=== PATIENT | female | born 1995 | race Caucasian/White ===

== ENCOUNTER → 2016-05-15 | Outpatient (CLI) | payer OTHER ==
[~2016-05-15] MED LIST: ACET-1311 PO; BCPILLS PO; MPR50 PO; MTR600X PO; NITR-5 PO; ONDA8TAB62 SL; OXYC-57 PO; PERCOCET PO; PRENTAB26 PO; SERT50TA PO
[2016-05-15 18:31] LABS: URINE APPEARANCE CLEAR (CLEAR); URINE BILIRUBIN NEG (NEG); URINE COLOR YELLOW; URINE EPITHELIAL CELL AUTO >30 /lpf (0-5); URINE NITRITE NEG (NEG); URINE SPECIFIC GRAVITY 1.032 (1.000-1.030); UROBILINOGEN NEG (NEG)
[2016-05-15 18:32] LABS: MANUAL MICROSCOPIC REQUIRED? NO; REVIEW REQ? NO
== END | disposition home or self-care (01) ==
LOC: C.LABSPEC 17:05
PROVIDERS: ATTEND Obstetrics & Gynecology
DX: O34.219 Maternal care for unspecified type scar from previous cesarean delivery (principal); Z3A.00 Weeks of gestation of pregnancy not specified

== ENCOUNTER → 2016-05-17 | Outpatient (CLI) | payer OTHER ==
[2016-05-20 02:38] LABS: CHLAMYDIA TRACH RNA*** NOT DETECTED (NOT DETECTED); GC (NEIS GONORRHOEAE)RNA** NOT DETECTED (NOT DETECTED)
== END | disposition home or self-care (01) ==
LOC: C.LABSPEC 16:01
PROVIDERS: ATTEND Obstetrics & Gynecology
DX: O34.219 Maternal care for unspecified type scar from previous cesarean delivery (principal)

== ENCOUNTER → 2016-05-17 | Outpatient (CLI) | payer OTHER ==
[2016-05-17 16:40] LABS: BASO % 0.3 %; BASO ABS # 0.03 K/uL (0-0.2); COMPLETE YES; EOS % 0.7 %; HEMATOCRIT 41.4 % (37-47); IG% 0.4 %; LYMPH % 26.9 %; LYMPH ABS # 3.17 K/uL (1.2-3.4); MEAN CELL VOLUME 88.5 fL (80-100); MEAN CORPUSCULAR HEMOGLOBIN 31.2 pg (25-34); MEAN CORPUSCULAR HGB CONC 35.3 g/dl (32-36); MEAN PLATELET VOLUME 10.3 fL (7.4-10.4); NEUT % 64.7 %; PLATELET COUNT 311 K/uL (130-400); RED BLOOD COUNT 4.68 M/uL (4.2-5.4); WHITE BLOOD COUNT 11.77 K/uL (4.8-10.8)
== END | disposition home or self-care (01) ==
LOC: C.LAB1850 14:50
PROVIDERS: ATTEND Obstetrics & Gynecology
DX: O34.219 Maternal care for unspecified type scar from previous cesarean delivery (principal)

== ENCOUNTER 2016-05-18 19:49 | Emergency (ER) | payer OTHER ==
[~2016-05-18] VITALS: Ht 157.5 cm; Wt 50.0 kg
[~2016-05-18 19:49] MED LIST changes: -ACET-1311 PO; -MPR50 PO; -MTR600X PO; -NITR-5 PO; -ONDA8TAB62 SL; -OXYC-57 PO; -PRENTAB26 PO
[2016-05-18 20:06] VITALS: TEMP 37.2; Ht 157.5 cm; Wt 50.0 kg
[2016-05-18] MEDS ORDERED: SODIUM CHLORIDE 0.9% 1000ML 1,000 ML IV STA (21:56)
[2016-05-18] MEDS ORDERED: ACETAMINOPHEN 500 MG TAB PO STA (22:02)
[2016-05-18 22:16] VITALS: O2SAT 100
[2016-05-18] MEDS ORDERED: ACET-1311 PO (22:42)
[2016-05-18] MEDS ORDERED: PRENTAB26 PO (22:42)
[2016-05-18 23:16] LABS: BUN/CREATININE RATIO 13.1 (10-20); CALCIUM 8.8 mg/dl (8.5-10.1); CREATININE 0.62 mg/dl (0.60-1.20); POTASSIUM 3.7 mmol/L (3.5-5.1)
[2016-05-18 23:19] LABS: ALB/GLOB RATIO 1.2 (0.9-2)
[2016-05-18 23:50] LABS: BASO % 0.2 %; BASO ABS # 0.03 K/uL (0-0.2); COMPLETE YES; EOS % 1.1 %; HEMATOCRIT 36.8 % (37-47); IG% 0.3 %; LYMPH ABS # 4.13 K/uL (1.2-3.4); MEAN CELL VOLUME 88.9 fL (80-100); MEAN CORPUSCULAR HEMOGLOBIN 31.2 pg (25-34); MEAN CORPUSCULAR HGB CONC 35.1 g/dl (32-36); MEAN PLATELET VOLUME 9.7 fL (7.4-10.4); MONO % 6.2 %; NEUT % 61.2 %; PLATELET COUNT 254 K/uL (130-400); RED BLOOD COUNT 4.14 M/uL (4.2-5.4); WHITE BLOOD COUNT 13.31 K/uL (4.8-10.8)
[2016-05-19 00:33] LABS: URINE APPEARANCE CLOUDY (CLEAR); URINE BILIRUBIN NEG (NEG); URINE COLOR YELLOW; URINE EPITHELIAL CELL AUTO >30 /lpf (0-5); URINE NITRITE NEG (NEG); URINE SPECIFIC GRAVITY 1.017 (1.000-1.030); UROBILINOGEN NEG (NEG); ZZUR CULT IF INDIC CLEAN CATCH YES
[2016-05-19 00:34] LABS: MANUAL MICROSCOPIC REQUIRED? NO; REVIEW REQ? NO
[2016-05-19 01:55] VITALS: BP 101/45; PULSE 75; O2SAT 99
--- NOTE | 2016-05-19 06:17 | EMERGENCY ROOM VISIT NOTE ---
History First contact with patient: 21:51 Chief Complaint: FLANK PAIN Stated Complaint: BACK/RIB PAIN R SIDE DIZZINESS BLACKING OUT History of Present Illness The patient is a 21 year old female who presents to the Emergency Room with complaints of right flank pain for the past 8 months described as aching, ranging in severity currently 5 out of 10 throughout a near-syncopal episode today feels lightheaded. Patient is 7 weeks . She saw ani Bashir OB yesterday and had her testing done. She has a viable IUP by ultrasound per patient. Patient denies chest pain, dyspnea, fever, chills, cough, congestion, nausea, vomiting, diarrhea, urinary symptoms, headache injury , recent illness. She is tolerate by mouth fluids and food. This is her second . She is one living child. Review of Systems See HPI for pertinent positives & negatives. A total of 10 systems reviewed and were otherwise negative. Past Medical/Surgical History Medical Problems: (1) Hx MRSA infection (2) Ovarian cyst, left Surgical Problems: (1) S/P appendectomy (2) S/P cholecystectomy Social History Smoking Status: Current Some Day Smoker Alcohol Use: none Drug Use: none Current/Historical Medications Scheduled Acetaminophen (Tylenol), 650 MG PO DIRECTED Multivit/Min/Iron/Fol Ac/Pren ( Vitamin), 1 TAB PO DAILY Allergies Coded Allergies: Ketorolac Tromethamine (Verified Allergy, Unknown, unknown, 05/18/16) Morphine (Verified Allergy, Unknown, unknown, 05/18/16) Penicillins (Verified Allergy, Unknown, unknwn, 05/18/16) Promethazine (Verified Allergy, Unknown, unknown, 05/18/16) Physical Exam Vital Signs Date Time Temp Pulse Resp B/P Pulse Ox O2 Delivery O2 Flow Rate FiO2 05/19/16 01:55 75 20 101/45 99 05/19/16 01:50 73 05/19/16 00:31 72 20 101/45 98 Room Air 05/18/16 22:22 70 108/57 69 102/59 84 100/67 05/18/16 22:16 100 Room Air 05/18/16 22:16 100 Room Air 05/18/16 22:00 79 05/18/16 21:51 61 18 119/71 100 Room Air 05/18/16 20:06 37.2 106 16 110/69 100 Room Air Pain Rating (0-10): 0 Physical Exam VITALS: Vitals are noted on the nurse's note and reviewed by myself. Vital signs stable. GENERAL: Pleasant female, in no acute distress, nondiaphoretic, well-developed well-nourished. SKIN: The skin was without rashes, erythema, edema, or bruising. There is no tenting of the skin. Capillary reflex less than 2 seconds. HEAD: Normocephalic atraumatic. EARS: External auditory canals clear, tympanic membranes pearly heredia without erythema or effusion bilaterally. EYES: Pupils equal round and reactive to light and accommodation. Conjunctivae without injection, sclerae without icterus. Extraocular movements intact. NOSE: Patent, turbinates without inflammation or discharge. MOUTH: Mucous membranes moist. Pharynx without erythema or exudate. Uvula midline. Airway patent. Tongue does not deviate. NECK: Supple without nuchal rigidity. No lymphadenopathy. No thyromegaly. Cervical spine is nontender. No JVD. HEART: Regular rate and rhythm without murmurs gallops or rubs. LUNGS: Clear to auscultation bilaterally without wheezes, rales or rhonchi. No dullness to percussion. No retractions or accessory muscle use. ABDOMEN: Positive bowel sounds x 4. Normal tympanic percussion. Soft, nontender, without masses or organomegaly. King sign negative. No guarding or rebound tenderness. No CVA tenderness MUSCULOSKELETAL: No muscle atrophy, erythema, or edema noted. No thoracic or lumbar tenderness on exam. NEURO: Patient was alert and oriented to person place and time. Normal sensation to light and sharp touch. No focal neurological deficits. Medical Decision & Procedures Laboratory Results 05/18/16 23:40 Red Blood Count 4.14, Mean Corpuscular Volume 88.9, Mean Corpuscular Hemoglobin 31.2, Mean Corpuscular Hemoglobin Concent 35.1, Mean Platelet Volume 9.7, Neutrophils (%) (Auto) 61.2, Lymphocytes (%) (Auto) 31.0, Monocytes (%) (Auto) 6.2, Eosinophils (%) (Auto) 1.1, Basophils (%) (Auto) 0.2, Neutrophils # (Auto) 8.14, Lymphocytes # (Auto) 4.13, Monocytes # (Auto) 0.83, Eosinophils # (Auto) 0.14, Basophils # (Auto) 0.03 05/18/16 22:45 Test 05/18/16 00:00 05/18/16 22:45 05/18/16 23:40 Urine Color YELLOW Urine Appearance CLOUDY (CLEAR) Urine pH 7.0 (4.5-7.5) Urine Specific [place] 1.017 (1.000-1.030) Urine Protein NEG (NEG) Urine Glucose (UA) NEG (NEG) Urine Ketones NEG (NEG) Urine Occult Blood 1+ (NEG) Urine Nitrite NEG (NEG) Urine Bilirubin NEG (NEG) Urine Urobilinogen NEG (NEG) Urine Leukocyte Esterase SMALL (NEG) Urine WBC (Auto) 5-10 /hpf (0-5) Urine RBC (Auto) 10-30 /hpf (0-4) Urine Hyaline Casts (Auto) 1-5 /lpf (0-5) Urine Epithelial Cells (Auto) >30 /lpf (0-5) Urine Bacteria (Auto) 1+ (NEG) Anion Gap 9.0 mmol/L (3-11) Est Creatinine Clear Calc Drug Dose 112.3 ml/min Estimated GFR () 148.3 Estimated GFR (Non- 128.0 BUN/Creatinine Ratio 13.1 (10-20) Calcium Level 8.8 mg/dl (8.5-10.1) Total Bilirubin 0.3 mg/dl (0.2-1) Direct Bilirubin 0.1 mg/dl (0-0.2) Aspartate Amino Transf (AST/SGOT) 14 U/L (15-37) Alanine Aminotransferase (ALT/SGPT) 18 U/L (12-78) Alkaline Phosphatase 70 U/L (45-117) Total Protein 7.0 gm/dl (6.4-8.2) Albumin 3.8 gm/dl (3.4-5.0) Globulin 3.2 gm/dl (2.5-4.0) Albumin/Globulin Ratio 1.2 (0.9-2) Lipase 166 U/L (73-393) Human Chorionic Gonadotropin, Quant 96922 mIU/mL White Blood Count 13.31 K/uL (4.8-10.8) Red Blood Count 4.14 M/uL (4.2-5.4) Hemoglobin 12.9 g/dL (12.0-16.0) Hematocrit 36.8 % (37-47) Mean Corpuscular Volume 88.9 fL (80-100) Mean Corpuscular Hemoglobin 31.2 pg (25-34) Mean Corpuscular Hemoglobin Concent 35.1 g/dl (32-36) Platelet Count 254 K/uL (130-400) Mean Platelet Volume 9.7 fL (7.4-10.4) Neutrophils (%) (Auto) 61.2 % Lymphocytes (%) (Auto) 31.0 % Monocytes (%) (Auto) 6.2 % Eosinophils (%) (Auto) 1.1 % Basophils (%) (Auto) 0.2 % Neutrophils # (Auto) 8.14 K/uL (1.4-6.5) Lymphocytes # (Auto) 4.13 K/uL (1.2-3.4) Monocytes # (Auto) 0.83 K/uL (0.11-0.59) Eosinophils # (Auto) 0.14 K/uL (0-0.5) Basophils # (Auto) 0.03 K/uL (0-0.2) RDW Standard Deviation 40.8 fL (36.4-46.3) RDW Coefficient of Variation 12.8 % (11.5-14.5) Immature Granulocyte % (Auto) 0.3 % Immature Granulocyte # (Auto) 0.04 K/uL (0.00-0.02) Medications Administered Medications (Trade) Dose Ordered Sig/Sandrita Route Start Time Stop Time Status Last Admin Dose Admin Sodium Chloride (Nss 1000ml) 1,000 ml @ 999 mls/hr Q1H1M STAT IV 05/18/16 21:56 05/18/16 22:56 DC 05/18/16 21:56 999 MLS/HR Acetaminophen (Tylenol Tab) 1,000 mg NOW STAT PO 05/18/16 22:02 05/18/16 22:03 DC 05/18/16 22:36 1,000 MG ED Course Prior records/ancillary studies reviewed. Triage Nursing notes reviewed. The patient's history was concerning for flank pain with near syncope. Differential diagnosis: Etiologies such as vasovagal event, infection, hypoglycemia, electrolyte abnormalities, cardiac sources, intracerebral event, toxicologic, neurologic, as well as others were entertained. Physical examination: Patient alert, interactive and well-appearing. She is eating fast food ER treatment provided: IV hydration with normal saline On reassessment the patient felt better. Diagnostics interpretation by me: ECG: Normal sinus, normal intervals, no acute ST-T wave changes. Impression sinus bradycardia interpreted by myself The labs revealed leukocytosis most likely from . No worrisome electrolyte abnormality. Negative urine Imaging studies: Ultrasound was negative for hydronephrosis per stat radiology This appears to be consistent with near syncope. Patient has chronic back pain unchanged. Patient was neurovascularly and neurologically intact. She is well- appearing. She was advised to rest, stay well-hydrated, and follow-up with OB in a few days or here in the ER sooner for chest pain, difficulty breathing, syncope, worsening signs or symptoms or as needed. By the evaluation outlined above emergent etiologies such as infection, hypoglycemia, electrolyte abnormalities, cardiac sources, intracerebral event, toxicologic, neurologic,as well as others were deemed relatively unlikely. The pt informed about the findings as listed above. All questions were answered and pleased with the treatment. Return instructions were outlined and the patient was discharged in stable condition. Referral: The patient was referred back to their PATIENT [facility] for follow-up in 2 to 3 days for a recheck of the current condition. Case reviewed with my attending Medical Decision As above Impression Primary Impression: Near syncope Additional Impression: Right flank pain Departure Information Dispostion Home / Self-Care Condition GOOD Forms HOME CARE DOCUMENTATION FORM, Work Instructions, Return To Work: 1 day IMPORTANT VISIT INFORMATION Patient Instructions Syncope Causes, My [facility] Additional Instructions Acetaminophen(Tylenol) may be used for fever or pain. Use 1000mg every six hours as needed. Avoid using more than 3000mg in a 24 hour period. Rest and drink plenty of fluids as tolerated. Continue current medications. Avoid strenuous activities and anything that worsens your pain. Resume normal activities once your symptoms resolve. Return to the ER immediately for worsening or persistent back pain, abdominal pain, vomiting, fevers, chest pains, difficulty breathing, worsening of your condition, or as needed. Follow up with your primary physician and [facility] in 2-3 days for a recheck of your current condition. Work Instructions Return To Work: 1 day Problem Qualifiers
--- NOTE | 2016-05-19 06:38 | DIAGNOSTIC IMAGING REPORT ---
RENAL ULTRASOUND HISTORY: Flank pain right flank pain COMPARISON: None. FINDINGS: Right kidney: Maximum dimension 10.5 cm. Normal corticomedullary differentiation and cortical thickness. Left kidney: Maximum dimension 10.4 cm. Normal corticomedullary differentiation and cortical thickness. Bladder: No bladder wall thickening. The bilateral ureteral jets were identified. IMPRESSION: Normal renal ultrasound. Electronically signed by: Peyman Jackson M.D. 05/19/2016 6:36 AM Dictated Date/Time: 05/19/2016 6:36 AM
== END 2016-05-19 01:57 | disposition home or self-care (01) ==
LOC: C.EDB 19:49
DX: R55 Syncope and collapse (principal); R10.9 Unspecified abdominal pain; Z90.89 Acquired absence of other organs; Z90.49 Acquired absence of other specified parts of digestive tract; F17.200 Nicotine dependence, unspecified, uncomplicated; Z88.0 Allergy status to penicillin; Z88.5 Allergy status to narcotic agent

== ENCOUNTER → 2016-07-18 | Outpatient (CLI) | payer OTHER ==
[~2016-07-18] MED LIST changes: +ACET-1311 PO; -BCPILLS PO; +MPR50 PO; +MTR600X PO; +NITR-5 PO; +ONDA8TAB62 SL; +OXYC-57 PO; -PERCOCET PO; +PRENTAB26 PO; -SERT50TA PO; +VANC1INJ94 IV
[2016-07-18 15:58] LABS: GTGD 50 Grams
== END | disposition home or self-care (01) ==
LOC: C.LAB1850 14:06
PROVIDERS: ATTEND Obstetrics & Gynecology
DX: Z34.91 Encounter for supervision of normal pregnancy, unspecified, first trimester (principal)

== ENCOUNTER 2016-10-05 16:35 | Outpatient (CLI) | payer OTHER ==
[~2016-10-05 16:35] MED LIST changes: -MPR50 PO; -MTR600X PO; -NITR-5 PO; -ONDA8TAB62 SL; -OXYC-57 PO; -VANC1INJ94 IV
[2016-10-05] MEDS ORDERED: TERBUTALINE SULFATE 1 MG/ML VIAL ONE (20:13)
[2016-10-05] MEDS ORDERED: TERBUTALINE SULFATE 1 MG/ML VIAL SQ ONE ×2 (20:15)
[2016-12-21] MEDS ORDERED: OXYC-57 PO (05:14)
[2016-12-21] MEDS ORDERED: MTR600X PO (05:14)
[2016-12-21] MEDS ORDERED: MPR50 PO (08:13)
[2016-12-28] MEDS ORDERED: OXYC-57 PO (12:08)
[2016-12-28] MEDS ORDERED: VANC1INJ94 IV ×2 (12:34→14:56)
== END 2016-10-05 21:11 | disposition home or self-care (01) ==
LOC: C.OPB 16:35 → C.LD 16:35 → C.OPB 21:11
PROVIDERS: ATTEND Obstetrics & Gynecology
DX: O44.22 Partial placenta previa NOS or without hemorrhage, second trimester (principal); O99.89 Other specified diseases and conditions complicating pregnancy, childbirth and the puerperium; M54.9 Dorsalgia, unspecified; R10.9 Unspecified abdominal pain; Z3A.26 26 weeks gestation of pregnancy

== ENCOUNTER → 2016-10-16 | Outpatient (CLI) | payer OTHER ==
[~2016-10-16] MED LIST changes: +MPR50 PO; +MTR600X PO; +NITR-5 PO; +ONDA8TAB62 SL; +OXYC-57 PO; +VANC1INJ94 IV
[2016-10-16 16:36] LABS: HEMATOCRIT 36.7 % (37-47)
[2016-10-16 17:10] LABS: GTGD 50 Grams
== END | disposition home or self-care (01) ==
LOC: C.LAB1850 14:47
PROVIDERS: ATTEND Obstetrics & Gynecology
DX: Z34.02 Encounter for supervision of normal first pregnancy, second trimester (principal); Z20.5 Contact with and (suspected) exposure to viral hepatitis

== ENCOUNTER → 2016-10-16 | Outpatient (CLI) | payer OTHER ==
[2016-10-16 16:07] LABS: URINE APPEARANCE CLEAR (CLEAR); URINE BILIRUBIN NEG (NEG); URINE COLOR YELLOW; URINE EPITHELIAL CELL AUTO >30 /lpf (0-5); URINE NITRITE NEG (NEG); URINE PH 8.5 (4.5-7.5); URINE SPECIFIC GRAVITY 1.013 (1.000-1.030); UROBILINOGEN NEG (NEG)
[2016-10-16 16:11] LABS: MANUAL MICROSCOPIC REQUIRED? NO; REVIEW REQ? NO
== END | disposition home or self-care (01) ==
LOC: C.LABSPEC 15:46
PROVIDERS: ATTEND Obstetrics & Gynecology
DX: Z34.02 Encounter for supervision of normal first pregnancy, second trimester (principal)

== ENCOUNTER → 2016-11-01 | Outpatient (CLI) | payer OTHER | END | disposition home or self-care (01) | LOC: C.LAB1850 10:54 | PROVIDERS: ATTEND Obstetrics & Gynecology | DX: O28.9 Unspecified abnormal findings on antenatal screening of mother (principal); Z3A.00 Weeks of gestation of pregnancy not specified ==

== ENCOUNTER 2016-11-19 11:43 | Emergency (ER) | payer OTHER ==
[~2016-11-19] VITALS: Ht 154.9 cm; Wt 61.1 kg
[~2016-11-19 11:43] MED LIST changes: -MPR50 PO; -MTR600X PO; -NITR-5 PO; -ONDA8TAB62 SL; -OXYC-57 PO; -VANC1INJ94 IV
[2016-11-19 11:45] VITALS: TEMP 36.7; Ht 154.9 cm; Wt 61.1 kg
[2016-11-19] MEDS ORDERED: NITR-5 PO (12:12)
[2016-11-19] MEDS ORDERED: OXYC-57 PO (12:12)
[2016-11-19] MEDS ORDERED: ONDA8TAB62 SL (12:13)
[2016-11-19] MEDS ORDERED: SODIUM CHLORIDE 0.9% 1000ML 1,000 ML IV STA (12:18)
[2016-11-19] MEDS ORDERED: ONDANSETRON INJ 2 MG/ML 2 ML VIAL IV STA (12:18)
[2016-11-19] MEDS ORDERED: ACETAMINOPHEN IV 650 MG in EMPTY BAG 0 ML IV STA (12:18)
[2016-11-19] MEDS ORDERED: FENTANYL CITRATE INJ 50 MCG/1 ML 2 ML VIAL IV ONE (12:30)
[2016-11-19 12:42] LABS: BASO % 0.1 %; BASO ABS # 0.01 K/uL (0-0.2); COMPLETE YES; EOS % 0.6 %; HEMATOCRIT 35.8 % (37-47); LYMPH % 15.1 %; LYMPH ABS # 1.54 K/uL (1.2-3.4); MEAN CELL VOLUME 89.9 fL (80-100); MEAN CORPUSCULAR HEMOGLOBIN 30.7 pg (25-34); MEAN CORPUSCULAR HGB CONC 34.1 g/dl (32-36); MEAN PLATELET VOLUME 9.8 fL (7.4-10.4); MONO % 5.5 %; NEUT % 77.7 %; PLATELET COUNT 202 K/uL (130-400); RED BLOOD COUNT 3.98 M/uL (4.2-5.4)
--- NOTE | 2016-11-19 12:44 | EMERGENCY ROOM VISIT NOTE ---
History Report prepared by Lexy: Mandeep Tavares Under the Supervision of: Dr. Cassia Shankar M.D. First contact with patient: 12:02 Chief Complaint: FLANK PAIN Stated Complaint: LEFT FLANK PAIN History of Present Illness The patient is a 21 year old female who presents to the Emergency Room with complaints of worsening left flank pain beginning 2 days ago. The patient states that she has been experiencing pain in the right flank for the past year. She notes that she has seen her PCP, urologist, and ED doctors multiple times. She reports that her pain spread to the left side, and is getting worse. The patient notes that she has been in the ER for the past two days for similar symptoms. She states that she had a renal ultra sound that showed mild right renal hydronephrosis. 0.5 x 0.4 x 0.5 cm possible calcification of the lower pole of the right kidney. Slightly pelvocaliectasis of the left kidney. Left ureteral jet no demonstrated. Clinical correlation and follow up exams are recommended. The patient states that she was given Percocet for pain, because all she had was Tylenol. She notes that she cannot move without pain. She reports that she is 33 weeks , and she can feel the baby move. She denies fevers. Source of History: patient Onset: two days ago Position: other (left flank) Timing: worsening Modifying Factors (Worsening): movement Associated Symptoms: No fevers Review of Systems See HPI for pertinent positives & negatives. A total of 10 systems reviewed and were otherwise negative. Past Medical & Surgical Medical Problems: (1) 26 weeks gestation of (2) Back pain complicating in second trimester (3) Cramping affecting , antepartum (4) Hx MRSA infection (5) Ovarian cyst, left (6) Placenta previa marginalis (7) Vaginal bleeding during , antepartum Surgical Problems: (1) S/P appendectomy (2) S/P cholecystectomy Family History Cancer Diabetes mellitus Gallbladder disease Heart disease Hypertension Kidney disease Kidney stones Seizures Social History Smoking Status: Current Some Day Smoker Alcohol Use: none Drug Use: none Marital Status: in relationship Housing Status: lives with significant other Occupation Status: unemployed Current/Historical Medications Scheduled Acetaminophen (Tylenol), 650 MG PO DIRECTED Multivit/Min/Iron/Fol Ac/Pren ( Vitamin), 1 TAB PO QAM Nitrofurantoin Monohyd Macrocr (Macrobid), 100 MG PO Q12 Scheduled PRN Ondansetron Odt (Zofran Odt), 8 MG SL Q6H PRN for Nausea Oxycodone/Acetaminophen 5MG/325MG (Percocet 5MG/325MG), 1 TABLET PO Q6H PRN for Pain Allergies Coded Allergies: Ketorolac Tromethamine (Verified Allergy, Unknown, unknown, 11/19/16) Morphine (Verified Allergy, Unknown, unknown, 11/19/16) Penicillins (Verified Allergy, Unknown, unknwn, 11/19/16) Promethazine (Verified Allergy, Unknown, unknown, 11/19/16) Physical Exam Vital Signs Date Time Temp Pulse Resp B/P (MAP) Pulse Ox O2 Delivery O2 Flow Rate FiO2 11/19/16 14:21 66 18 95/43 99 11/19/16 13:39 79 16 96/46 100 Room Air 11/19/16 11:45 36.7 82 18 107/64 98 Room Air Physical Exam Vital signs reviewed. General: Tearful and anxious 21 year old female, in moderate distress. HEENT: No scleral icterus, PERRLA, neck supple. Atraumatic. Cardiovascular: Regular rate and rhythm, no extra sounds. Pulmonary: Clear to auscultation bilaterally, normal work of breathing. Abdomen: Soft, nontender, gravid, positive bowel sounds. Musculoskeletal: Atraumatic, no peripheral edema. Left greater than right CVA tenderness. Neurologic: Patient awake alert and oriented x 3, full strength in all 4 extremities. Cranial nerves 2 through 12 grossly intact. Skin: Warm, dry, no rash Medical Decision & Procedures ER Provider Diagnostic Interpretation: Radiology results as stated below per my review and radiologist interpretation: (RENAL)RETROPERITON COMP HISTORY: 21 years-old Female acute left flank pain with COMPARISON: Renal ultrasound 05/18/2016 TECHNIQUE: Multiple real-time sonographic images of the kidneys and urinary bladder were obtained assessing grayscale appearance and color flow. FINDINGS: The right kidney measures 12.5 x 4.1 x 5.0 cm. There are multiple echogenic shadowing stones identified with associated twinkle artifact, measuring in the 2 to 3 mm range, notably within the inferior pole without significant hydronephrosis. There is however mild dilation of the collecting system, likely physiologic Cortical medullary differentiation is within normal limits. Left kidney measures 12.3 x 5.5 x 5.2 cm. There is mild dilation of the renal pelvis, Central and peripheral calyces. Several stones are seen within the left kidney, largest of which is within the inferior pole, 0.4 cm. Fetus is noted within the pelvis causing mass effect upon the urinary bladder. Bilateral ureteral jets are not documented. IMPRESSION: 1. Bilateral nephrolithiasis with mild dilation of the left renal pelvis, central and peripheral calyces suggesting hydronephrosis. It is uncertain if the etiology of this finding is from third trimester gestation or a distal calculus not identified. 2. Mild prominence of the right renal collecting system is likely physiologic secondary to gravid state. 3. Mass effect of the urinary bladder from head. The above report was generated using voice recognition software. It may contain grammatical, syntax or spelling errors. Electronically signed by: Walter Rao M.D. 11/19/2016 1:30 PM Dictated Date/Time: 11/19/2016 1:26 PM Laboratory Results 11/19/16 12:00 Red Blood Count 3.98, Mean Corpuscular Volume 89.9, Mean Corpuscular Hemoglobin 30.7, Mean Corpuscular Hemoglobin Concent 34.1, Mean Platelet Volume 9.8, Neutrophils (%) (Auto) 77.7, Lymphocytes (%) (Auto) 15.1, Monocytes (%) (Auto) 5.5, Eosinophils (%) (Auto) 0.6, Basophils (%) (Auto) 0.1, Neutrophils # (Auto) 7.93, Lymphocytes # (Auto) 1.54, Monocytes # (Auto) 0.56, Eosinophils # (Auto) 0.06, Basophils # (Auto) 0.01 11/19/16 12:00 Test 11/19/16 11:50 11/19/16 12:00 Urine Color DK YELLOW Urine Appearance CLEAR (CLEAR) Urine pH 7.0 (4.5-7.5) Urine Specific [place] 1.013 (1.000-1.030) Urine Protein NEG (NEG) Urine Glucose (UA) NEG (NEG) Urine Ketones NEG (NEG) Urine Occult Blood 1+ (NEG) Urine Nitrite NEG (NEG) Urine Bilirubin NEG (NEG) Urine Urobilinogen NEG (NEG) Urine Leukocyte Esterase NEG (NEG) Urine WBC (Auto) 5-10 /hpf (0-5) Urine RBC (Auto) 5-10 /hpf (0-4) Urine Hyaline Casts (Auto) 1-5 /lpf (0-5) Urine Epithelial Cells (Auto) >30 /lpf (0-5) Urine Bacteria (Auto) NEG (NEG) White Blood Count 10.20 K/uL (4.8-10.8) Red Blood Count 3.98 M/uL (4.2-5.4) Hemoglobin 12.2 g/dL (12.0-16.0) Hematocrit 35.8 % (37-47) Mean Corpuscular Volume 89.9 fL (80-100) Mean Corpuscular Hemoglobin 30.7 pg (25-34) Mean Corpuscular Hemoglobin Concent 34.1 g/dl (32-36) Platelet Count 202 K/uL (130-400) Mean Platelet Volume 9.8 fL (7.4-10.4) Neutrophils (%) (Auto) 77.7 % Lymphocytes (%) (Auto) 15.1 % Monocytes (%) (Auto) 5.5 % Eosinophils (%) (Auto) 0.6 % Basophils (%) (Auto) 0.1 % Neutrophils # (Auto) 7.93 K/uL (1.4-6.5) Lymphocytes # (Auto) 1.54 K/uL (1.2-3.4) Monocytes # (Auto) 0.56 K/uL (0.11-0.59) Eosinophils # (Auto) 0.06 K/uL (0-0.5) Basophils # (Auto) 0.01 K/uL (0-0.2) RDW Standard Deviation 43.1 fL (36.4-46.3) RDW Coefficient of Variation 13.0 % (11.5-14.5) Immature Granulocyte % (Auto) 1.0 % Immature Granulocyte # (Auto) 0.10 K/uL (0.00-0.02) Anion Gap 7.0 mmol/L (3-11) Est Creatinine Clear Calc Drug Dose 115.6 ml/min Estimated GFR () 146.8 Estimated GFR (Non- 126.7 BUN/Creatinine Ratio 5.2 (10-20) Calcium Level 8.3 mg/dl (8.5-10.1) Total Bilirubin 0.2 mg/dl (0.2-1) Direct Bilirubin < 0.1 mg/dl (0-0.2) Aspartate Amino Transf (AST/SGOT) 12 U/L (15-37) Alanine Aminotransferase (ALT/SGPT) 19 U/L (12-78) Alkaline Phosphatase 155 U/L (45-117) Total Protein 6.6 gm/dl (6.4-8.2) Albumin 2.6 gm/dl (3.4-5.0) Laboratory results per my review. Medications Administered Medications (Trade) Dose Ordered Sig/Sandrita Route Start Time Stop Time Status Last Admin Dose Admin Fentanyl Citrate (Fentanyl Inj) 50 mcg NOW ONCE IV 11/19/16 12:30 11/19/16 12:31 DC 11/19/16 12:34 50 MCG Ondansetron HCl (Zofran Inj) 4 mg NOW STAT IV 11/19/16 12:18 11/19/16 12:25 DC 11/19/16 12:33 4 MG Acetaminophen 650 mg/Empty Bag 65 ml @ 260 mls/hr NOW STAT IV 11/19/16 12:18 11/19/16 12:32 DC 11/19/16 13:36 260 MLS/HR Sodium Chloride 1,000 ml @ 999 mls/hr Q1H1M STAT IV 11/19/16 12:18 11/19/16 13:18 DC 11/19/16 12:33 999 MLS/HR ED Course 1213: Past medical records reviewed. The patient was evaluated in room A11B. A complete history and physical examination was performed. 1218: Ordered Sodium Chloride 1000 ml @ 999 mls/hr IV, Acetaminophen 650 mg/ Empty Bag 65 ml @ 260 IV, Zofran Inj 4mg IV 1230: Ordered Fentanyl Inj 50mg IV 1325: Upon reevaluation, the patient is crying in pain. Her boyfriend says he has been through a lot of babies, and he has not seen anything like this. I discussed findings with her. She verbalized agreement of the treatment plan. The patient was discharged home. Medical Decision Differential diagnosis: Etiologies such as renal colic, appendicitis, diverticulitis, mesenteric ischemia, aortic pathology, infections, inflammatory bowel disease, PUD, biliary pathology, UTI, as well as others were entertained. This pt was evaluated and appeared to be in no distress. IV access was obtained and lab work was drawn. Patient was hydrated with normal saline solution, given IV fentanyl and Zofran. Ultrasound was obtained and reveals mild [place] bilaterally consistent with . Ureteral jets are not identified bilaterally however the head is compromising view of the bladder. The patient's pain has been going on for "about a year." It seems to have worsened over the last several days. I did discuss the case with Dr. Ceja of [employer]. The patient is feeling movement and heart tones are within normal limits. [employer] will contact the patient tomorrow for follow- up appointment within the next week. She has Percocet prescribed by the ER last evening. She was advised to use warm compresses and gentle stretching. She will return to the ER for worsening of symptoms or any medical concerns. Impression Primary Impression: with hydronephrosis in third trimester Additional Impression: Left flank pain Scribe Attestation The scribe's documentation has been prepared under my direction and personally reviewed by me in its entirety. I confirm that the note above accurately reflects all work, treatment, procedures, and medical decision making performed by me. Departure Information Dispostion Home / Self-Care Referrals Puala Ceja M.D. Williams, Kimberly J.,P.A. Forms HOME CARE DOCUMENTATION FORM, IMPORTANT VISIT INFORMATION Patient Instructions My [facility] Additional Instructions Diagnosis: L flank pain, Continue tylenol 650 mg every 6 hours as needed for pain. Percocet as prescribed, do not take this with tylenol. Stagger by at least 4-6 hours. Drink plenty of fluids. Warm compresses. OBGYN will contact you with an appt for this week. Return to the ED for worsening of symptoms or any medical concerns. Problem Qualifiers
[2016-11-19 12:53] LABS: BLOOD UREA NITROGEN 3 mg/dl (7-18); BUN/CREATININE RATIO 5.2 (10-20); CALCIUM 8.3 mg/dl (8.5-10.1); CARBON DIOXIDE 25 mmol/L (21-32); CHLORIDE 107 mmol/L (98-107); CREATININE 0.64 mg/dl (0.60-1.20); GLUCOSE 85 mg/dl (70-99); POTASSIUM 3.5 mmol/L (3.5-5.1); SODIUM 139 mmol/L (136-145)
[2016-11-19 12:56] LABS: URINE APPEARANCE CLEAR (CLEAR); URINE BILIRUBIN NEG (NEG); URINE COLOR DK YELLOW; URINE EPITHELIAL CELL AUTO >30 /lpf (0-5); URINE NITRITE NEG (NEG); URINE SPECIFIC GRAVITY 1.013 (1.000-1.030); UROBILINOGEN NEG (NEG); ZZUR CULT IF INDIC CLEAN CATCH NO
[2016-11-19 12:57] LABS: MANUAL MICROSCOPIC REQUIRED? NO; REVIEW REQ? NO
[2016-11-19 12:59] LABS: ALKALINE PHOSPHATASE 155 U/L (45-117); ALT/SGPT 19 U/L (12-78); AST/SGOT 12 U/L (15-37)
--- NOTE | 2016-11-19 13:31 | DIAGNOSTIC IMAGING REPORT ---
(RENAL)RETROPERITON COMP HISTORY: 21 years-old Female acute left flank pain with COMPARISON: Renal ultrasound 05/18/2016 TECHNIQUE: Multiple real-time sonographic images of the kidneys and urinary bladder were obtained assessing grayscale appearance and color flow. FINDINGS: The right kidney measures 12.5 x 4.1 x 5.0 cm. There are multiple echogenic shadowing stones identified with associated twinkle artifact, measuring in the 2 to 3 mm range, notably within the inferior pole without significant hydronephrosis. There is however mild dilation of the collecting system, likely physiologic Cortical medullary differentiation is within normal limits. Left kidney measures 12.3 x 5.5 x 5.2 cm. There is mild dilation of the renal pelvis, Central and peripheral calyces. Several stones are seen within the left kidney, largest of which is within the inferior pole, 0.4 cm. Fetus is noted within the pelvis causing mass effect upon the urinary bladder. Bilateral ureteral jets are not documented. IMPRESSION: 1. Bilateral nephrolithiasis with mild dilation of the left renal pelvis, central and peripheral calyces suggesting hydronephrosis. It is uncertain if the etiology of this finding is from third trimester gestation or a distal calculus not identified. 2. Mild prominence of the right renal collecting system is likely physiologic secondary to gravid state. 3. Mass effect of the urinary bladder from head. The above report was generated using voice recognition software. It may contain grammatical, syntax or spelling errors. Electronically signed by: Walter Rao M.D. 11/19/2016 1:30 PM Dictated Date/Time: 11/19/2016 1:26 PM
[2016-11-19 14:21] VITALS: BP 95/43; PULSE 66; O2SAT 99
[2016-12-28] MEDS ORDERED: OXYC-57 PO (12:08)
[2016-12-28] MEDS ORDERED: VANC1INJ94 IV ×2 (12:34→14:56)
== END 2016-11-19 14:21 | disposition home or self-care (01) ==
LOC: C.EDB 11:44 → C.EDA 14:21
DX: O26.833 Pregnancy related renal disease, third trimester (principal); R10.9 Unspecified abdominal pain; F17.200 Nicotine dependence, unspecified, uncomplicated; Z83.3 Family history of diabetes mellitus; Z82.49 Family history of ischemic heart disease and other diseases of the circulatory system; Z82.0 Family history of epilepsy and other diseases of the nervous system

== ENCOUNTER → 2016-12-14 | Outpatient (CLI) | payer OTHER ==
[~2016-12-14] MED LIST changes: +MPR50 PO; +MTR600X PO; +NITR-5 PO; +ONDA8TAB62 SL; +OXYC-57 PO; +VANC1INJ94 IV
== END | disposition home or self-care (01) ==
LOC: C.LABSPEC 17:41
PROVIDERS: ATTEND Urology
DX: N20.0 Calculus of kidney (principal)

== ENCOUNTER 2016-12-17 18:05 | Inpatient (IN) | payer OTHER ==
[~2016-12-17] VITALS: Ht 157.5 cm; Wt 70.0 kg
[~2016-12-17 18:05] MED LIST changes: -MPR50 PO; -MTR600X PO; -VANC1INJ94 IV
[2016-12-17] MEDS ORDERED: NURSING VERBAL MED ORDER ONE (18:45)
[2016-12-17] MEDS ORDERED: LACTATED RINGER'S 1000ML 1,000 ML IV ONE (19:00)
[2016-12-17 19:15] LABS: BASO % 0.1 %; BASO ABS # 0.01 K/uL (0-0.2); COMPLETE YES; EOS % 0.9 %; HEMATOCRIT 32.9 % (37-47); IG% 0.9 %; LYMPH ABS # 2.45 K/uL (1.2-3.4); MEAN CELL VOLUME 90.4 fL (80-100); MEAN CORPUSCULAR HEMOGLOBIN 30.8 pg (25-34); MEAN PLATELET VOLUME 9.8 fL (7.4-10.4); MONO % 7.5 %; NEUT % 72.6 %; PLATELET COUNT 227 K/uL (130-400); RED BLOOD COUNT 3.64 M/uL (4.2-5.4); WHITE BLOOD COUNT 13.59 K/uL (4.8-10.8)
[2016-12-17 19:30] VITALS: BMI 24.7
[2016-12-17] MEDS ORDERED: LACTATED RINGER'S 1000ML 1,000 ML IV SCH ×2 (20:00→23:49)
[2016-12-17] MEDS ORDERED: MEPERIDINE HCL 50 MG/ML CARP IM ONE (20:30)
[2016-12-17] MEDS ORDERED: TERBUTALINE SULFATE 1 MG/ML VIAL SQ STA (21:58)
[2016-12-17 23:00] VITALS: Ht 157.5 cm; Wt 70.0 kg
[2016-12-17] MEDS ORDERED: OXYCODONE/ACETAMINOPHEN 5-325 TAB PO STA (23:08)
[2016-12-17] MEDS ORDERED: CLINDAMYCIN IV 900 MG in DEXTROSE 5% 100ML 100 ML IV STA (23:58)
[2016-12-17] MEDS ORDERED: CITRIC ACID/SODIUM CITRATE 15 ML UDC PO STA (23:59)
[2016-12-18] VITALS (22 sets, daily range): BP systolic 93–108; BP diastolic 52–66; PULSE 61–80; TEMP 36.7–36.9; O2SAT 96–100
--- NOTE | 2016-12-18 00:55 | HISTORY & PHYSICAL EXAMINATION ---
DATE OF ADMISSION: 12/18/2016 PREOPERATIVE DIAGNOSES: 1. Intrauterine at 37 and 3/7 weeks. 2. History of previous delivery. 3. History of left renal obstruction with left nephrostomy tube. HISTORY OF PRESENT ILLNESS: The patient is a 21-year-old 2, para 1-0-0-1 with an EDC of 01/05/2017, making her 37 and 3/7 weeks by ultrasound dating. has been complicated by left partial renal obstruction with nephrostomy tube placed in [place]. She has had a previous section for failure to progress and failed induction. She was instructed by [place] renal folks that she would need to have a repeat delivery. She presents to labor and delivery today with painful contractions. She notes no leakage of fluid or vaginal bleeding. She notes good movement. She is very uncomfortable with these contractions. They are every 2-3 minutes on the monitor, they do palpate [id number]. When she was initially checked; she was closed, thick, and high. Over the course of observation, she did progress to a loose 1 and 75%, ergo I think she is in early labor and we will proceed with repeat section. PAST OBSTETRIC AND GYNECOLOGIC HISTORY: As noted above. She had a primary lower transverse section at 30 and 4/7 weeks in May 2014 to deliver a 6-pound 8-ounce female. This was at [facility]. Father of the baby is hepatitis C positive, but patient is tested hepatitis C negative x2 in this . No abnormal Pap smears. MEDICATIONS: vitamins, Tylenol, albuterol, Percocet as needed. PAST MEDICAL HISTORY: Significant for heart murmur without bleeding SBE prophylaxis, history of kidney stones, history of depression and anxiety without meds, history of asthma with albuterol use p.r.n., history of an ovarian cystectomy, history of varicella vaccine, history of MRSA in 2010 hospitalized x1 month. PAST SURGICAL HISTORY: Ovarian cystectomy, cholecystectomy, , wisdom teeth removal, appendectomy and I&D of MRSA lesions. SOCIAL HISTORY: The patient does admit to tobacco use, somewhere less than half a pack per day. She denies alcohol. She admits to using pot in July and again in October when her pain from her kidneys was severe. She lives with the father of the baby and his daughter, again the father of the baby is hep C positive. PHYSICAL EXAMINATION: GENERAL: This is a well-developed, well-nourished white female in no acute distress. VITAL SIGNS: She is afebrile and her vital signs are stable. She does appear uncomfortable with contractions. CHEST: Clear to auscultation bilaterally. CARDIOVASCULAR: Regular rate and rhythm without murmurs, gallops or rubs. BACK: Without costovertebral angle tenderness. PELVIC: There is a nephrostomy tube exiting from patient's left kidney. EXTREMITIES: Benign. PELVIC: Cervix is 1+, 75%, -2 station. Fetus is in the 150s with moderate variability, accels to the 170s. No decels. Tocodynamometer shows her sin every 2-3 minutes. LABORATORY DATA: O positive, antibody negative, rubella immune, RPR nonreactive, hepatitis B negative, HIV negative, hep C negative, chlamydia and gonorrhea negative, GTT x2 negative. GBS was negative, obtained on 11/22/2016. ASSESSMENT: This is a 21-year-old 2, para 1-0-0-2, with a history of previous section; who has had a left nephrostomy tube placed in this , who presents with early active labor. It was recommended that she have a repeat section given that she has demonstrated labor, we will proceed with section. The risks of the procedure were discussed with patient including the risks of anesthesia, bleeding requiring transfusion, infection, poor wound healing, damage to surrounding structures including bowel, bladder, vessels, nerves and ureters with need for further surgery, hospitalization or intervention. We discussed the risk of injury to the baby, discussed the risks of heart attack, blood clot, stroke or associated with surgery and consent was reviewed and signed. Surgery will proceed. FANTASMA
[2016-12-18] MEDS ORDERED: MORPHINE SULFATE PF 2MG/2ML SYR ONE (01:03)
[2016-12-18] MEDS ORDERED: FENTANYL CITRATE INJ 50 MCG/1 ML 2 ML VIAL ONE (01:03)
[2016-12-18] MEDS ORDERED: OXYTOCIN INJ 10 UNITS/ML VIAL ONE ×2 (01:06→01:39)
[2016-12-18] MEDS ORDERED: PHENYLEPHRINE 100MCG/ML 5ML SYR ONE (01:29)
[2016-12-18] MEDS ORDERED: CARBOPROST TROMETHAMINE 250 MCG/ML AMP ONE (01:39)
[2016-12-18] MEDS ORDERED: ONDANSETRON INJ 2 MG/ML 2 ML VIAL ONE (01:39)
[2016-12-18] MEDS ORDERED: NALOXONE HCL INJ 0.08 MG in SYRINGE 1.8 ML IV PRN (01:54)
[2016-12-18] MEDS ORDERED: NALOXONE HCL INJ 1 MG in SODIUM CHLORIDE 0.9% 1000ML 1,000 ML IV PRN (01:54)
[2016-12-18] MEDS ORDERED: SODIUM CHLORIDE 0.9% 1000ML 1,000 ML IV PRN (01:54)
[2016-12-18] MEDS ORDERED: LACTATED RINGER'S 1000ML 500 ML IV PRN (01:54)
[2016-12-18] MEDS ORDERED: EpHEDrine SULFATE INJ 50 MG/ML AMP IV PRN (02:00)
[2016-12-18] MEDS ORDERED: ONDANSETRON INJ 2 MG/ML 2 ML VIAL IV PRN (02:00)
[2016-12-18] MEDS ORDERED: MoRPHine SULFATE PF 1 MG/ML 10 ML AMP/VIAL EPI PRN (02:00)
[2016-12-18] MEDS ORDERED: NO NARCOTICS OR SEDATIVES SCH (02:00)
[2016-12-18] MEDS ORDERED: DiphenhydrAMINE HCL 50 MG/ML VIAL IV PRN (02:00)
[2016-12-18] MEDS ORDERED: MoRPHine SULFATE 2 MG/ML CARP IV PRN (02:00)
[2016-12-18] MEDS ORDERED: NALBUPHINE HCL INJ 10 MG/ML AMP IV PRN (02:00)
[2016-12-18] MEDS ORDERED: NALOXONE HCL 0.4 MG/1 ML VIAL/CARP IV PRN (02:00)
[2016-12-18] MEDS ORDERED: DC INTRASPINAL MORPHINE SCH (02:00)
[2016-12-18] MEDS ORDERED: OXYTOCIN INJ 20 UNITS in LACTATED RINGER'S 1000ML 1,000 ML IV SCH (02:06)
--- NOTE | 2016-12-18 02:11 | [facility] Post Operative Brief Note ---
Immediate Operative Summary Operative Date Dec 18, 2016. Pre-Operative Diagnosis 1. Intrauterine at 37 3/7 weeks 2. History of previous section, desires repeat 3. Early labor Post-Operative Diagnosis same Procedure(s) Performed Section Surgeon Dr. Ceja [employer] Teacher'S Aide Surgeon(s) Archana Coronado RN Estimated Blood Loss 600ML Findings viable female infant in cephalic presentation, apgars and weight pending. nl utx/tubes/ovs bilaterally. Fluids (cc crystalloids) 2000cc Specimens A. Cord blood B. Placenta- hold C. Cord blood gases Drains yu, left nephrostomy Anesthesia spinal Complication(s) None Disposition L&D
--- NOTE | 2016-12-18 02:14 | Anesthesiology Progress Note ---
Anesthesia Post Op Note Date & Time Dec 18, 2016 at 02:13 Vital Signs Pain Intensity: 2 Notes Mental Status: alert / awake / arousable, participated in evaluation Pt Amnestic to Procedure: Yes Nausea / Vomiting: adequately controlled Pain: adequately controlled Airway Patency, RR, SpO2: stable & adequate BP & HR: stable & adequate Hydration State: stable & adequate Neuraxial Anesthesia: was administered, sensory block is resolving Anesthetic Complications: no major complications apparent
[2016-12-18] MEDS ORDERED: HYDROCORTISONE ACETATE 25 MG SUPP PR PRN (02:15)
[2016-12-18] MEDS ORDERED: SUPERCREAM 0.870 % 15GM JAR EXT PRN (02:15)
[2016-12-18] MEDS ORDERED: IV FLUIDS COMPLETED PRN (02:15)
[2016-12-18] MEDS ORDERED: LANOLIN OINT EXT PRN ×2 (02:15)
[2016-12-18] MEDS ORDERED: DC PCA PRN (02:15)
[2016-12-18] MEDS ORDERED: DIPHTHERIA/TETANUS/PERTUSSIS 0.5 ML SYR/VIAL IM. ONE (02:15)
--- NOTE | 2016-12-18 04:07 | OPERATIVE REPORT ---
DATE OF OPERATION: 12/18/2016 PREOPERATIVE DIAGNOSES: 1. Intrauterine at 37-3/7 weeks. 2. Early labor. 3. History of previous section, desires repeat. POSTOPERATIVE DIAGNOSES: Same. PROCEDURE: Repeat lower transverse section. SURGEON: Paula Ceja MD COLOR MIXER: Archana Coronado RN ANESTHESIA: Spinal. ESTIMATED BLOOD LOSS: 600 mL. FLUIDS: 2000 mL. URINE OUTPUT: 40 mL of clear yellow urine drained from the Martinez catheter with urine in the left nephrostomy bag. INDICATIONS: The patient is a 2, para 1-0-0-1 who presents at 37 and 3/7 weeks with contractions. She has a history of previous section, desires repeat and was advised to have repeat by her renal doctors to place a left nephrostomy tube at the end of October. She was found to be changing her cervix and so we proceeded with delivery. FINDINGS: Viable female infant in cephalic presentation. Apgars 9 and 9, weight pending. Normal uterus, tubes, and ovaries were noted bilaterally. COMPLICATIONS: None. DRAINS: Martinez and left nephrostomy tube. DISPOSITION: To recovery room in stable condition. DESCRIPTION OF PROCEDURE: The patient was taken to the operating room where she was identified verbally and by bracelet. She was seated on the operating table where spinal anesthetic was placed there. She was then placed in dorsal supine position with a leftward tilt. A Martinez catheter was placed sterilely, and she was prepped and draped in normal sterile fashion. Anesthetic was tested and found to be adequate. Time-out was held identifying correct patient, procedure, positioning, and preoperative antibiotic. A Pfannenstiel skin incision was made with a knife and taken down to the underlying layer of fascia with the knife and cautery. The fascia was incised with the knife and taken out laterally with scissors. Superior edge of the fascial incision was grasped, elevated and the underlying layer of rectus muscle was taken off bluntly and with scissors. In a similar fashion, the inferior edge of the fascial incision was grasped, elevated and the underlying layer of rectus muscle was taken off bluntly and with scissors. The muscles were bluntly and sharply in the midline. The peritoneum was entered sharply, and taken superiorly and inferiorly with good visualization of the bladder. The bladder blade was placed. The vesicouterine peritoneum was identified, entered sharply with scissors and taken out laterally with scissors. The bladder flap was created digitally and sharply. The bladder flap was replaced. Hysterotomy incision was made with the knife and was scored with the knife. The uterus was entered with a snap. Clear fluid was noted. The remote pilot operator's hand was placed into the uterus and the head was delivered atraumatically. There was no nuchal cord. The nose and mouth were bulb suctioned. The rest of the infant was then delivered without difficulty. The nose and mouth were again bulb suctioned. The cord was clamped and cut. The was handed off to waiting pediatricians for drying and attention. Cord blood and segment were obtained. Placenta was expressed. The uterus was exteriorized and cleared of all clot and debris with moistened laparotomy sponges. Hemostasis was obtained with dilute Pitocin and intramuscular Hemabate administration. Hysterotomy incision was closed in 2 layers; the first in running locked layer, the second in an imbricating layer. The posterior cul-de-sac was cleared of all clot and debris. The hysterotomy incision was again inspected and found to be hemostatic. The uterus was reinteriorized. The hysterotomy incision was again inspected and found to be hemostatic. The muscles were reapproximated in the midline with several interrupted stitches of 0 Vicryl. The fascia was then reapproximated meeting in the midline with 0 Vicryl. The skin was irrigated with normal saline. Bleeding was attended to with Bovie electrocautery and the skin was closed with 4-0 subcuticular stitch of Vicryl. All sponge, lap and needle counts were correct x2. The patient tolerated the procedure well and was taken to recovery room in stable condition. I attest to the content of the Intraoperative Record and any orders documented therein. Any exception s are noted below.
[2016-12-18 04:25] LABS: BENZODIAZEPINE, URINE NEG (NEG); COCAINE,URINE NEG (NEG); PHENCYCLIDINE, URINE NEG (NEG)
[2016-12-18] MEDS: MEPERIDINE HCL 25 MG/ML CARP IV PRN ×2 (04:31→07:33)
[2016-12-18] MEDS: DOCUSATE SODIUM 100 MG CAP PO SCH ×2 (09:35→19:45)
[2016-12-18] MEDS: SIMETHICONE 80 MG CHEW PO SCH ×4 (09:35→19:45)
[2016-12-18] MEDS: PRENATAL VITAMIN TAB PO SCH (09:35)
[2016-12-18] MEDS: LACTATED RINGER'S 1000ML 1,000 ML IV SCH ×2 (11:59→19:44)
[2016-12-18] MEDS: MoRPHine SULFATE 2 MG/ML CARP IV PRN ×2 (16:33→21:36)
[2016-12-19 00:30] VITALS: O2SAT 97
[2016-12-19] MEDS ORDERED: MEPERIDINE HCL 50 MG/ML CARP IV PRN (01:00)
[2016-12-19] MEDS ORDERED: DiphenhydrAMINE HCL 50 MG/ML VIAL IV PRN (01:00)
[2016-12-19] MEDS: OXYCODONE/ACETAMINOPHEN 5-325 TAB PO PRN ×5 (01:41→22:52)
[2016-12-19 01:50] VITALS: O2SAT 16
--- NOTE | 2016-12-19 05:53 | OB/GYN Progress Note ---
FERMENTING CELLARS SUPERVISOR Progress Note Date of Service Dec 19, 2016. Subjective conversation w/ patient, physical exam, chart review, lab review Ambulation: limited ambulation Passing Gas: Yes Diet Tolerance: Regular Diet Feeding Type: Breast Feeding Pain: Says has some significant low abd pain Notes: - Martinez removed early this morning, waiting to void - Says her entire back itches. - No other acute c/o. Review of Systems Constitutional: No fever, No chills Respiratory: No cough, No shortness of breath Cardiac: No chest pain, No edema Abdomen: + pain, No nausea, No vomiting, No diarrhea Female : No dysuria, No incontinence Objective Vital Signs Date Time Temp Pulse Resp B/P (MAP) Pulse Ox O2 Delivery O2 Flow Rate FiO2 12/19/16 01:50 96 16 12/19/16 00:30 16 97 12/18/16 23:30 18 97 12/18/16 23:30 97 Room Air 12/18/16 23:30 36.8 61 18 106/54 (71) 97 Room Air 12/18/16 22:20 18 96 12/18/16 21:20 18 97 12/18/16 20:20 18 97 12/18/16 19:20 18 96 12/18/16 19:20 36.7 80 18 104/63 (77) 96 Room Air 12/18/16 18:20 18 96 12/18/16 17:20 18 97 12/18/16 16:20 20 98 12/18/16 15:25 97 Room Air 12/18/16 15:25 18 97 12/18/16 15:25 36.9 65 18 93/52 (66) 97 Room Air 12/18/16 14:20 18 98 12/18/16 13:20 20 96 12/18/16 12:20 20 98 12/18/16 12:00 36.7 69 18 105/62 (76) 96 Room Air 12/18/16 11:20 18 99 12/18/16 10:20 20 100 12/18/16 09:20 20 99 12/18/16 08:40 97 Room Air 12/18/16 08:20 20 96 12/18/16 07:20 20 100 12/18/16 07:15 36.8 68 20 97/59 (72) 100 Room Air 9/25/17 06:20 17 98 Physical Exam General Appearance: uncomfortable Respiratory/Chest: lungs clear, normal breath sounds, no respiratory distress Cardiovascular: regular rate, rhythm, no edema, no murmur Abdomen: normal bowel sounds, + tenderness (mild throughout) Fundus: Firm, Tender, Relation to Umbilicus (at umbilicus) Incision Description: Clean, Dry & Intact (steristrips in place) Extremities: non-tender, no pedal edema, no calf tenderness - No erythema or rashes noted on back. Assessment and Plan Post-Op Day Number: 1 Continue Routine Care: 21F s/p scheduled repeat due to nephrostomy tube, now PPD #1. - Blood type O positive. GBS negative. Rubella immune. - Vital signs reviewed and stable. - Has some low incisional regional pain this morning, given Percocet. - No leg swelling or tenderness on calf palpation. Encourage ambulation. - Encourage breast feeding. - Hemoglobin pre-delivery 11.2, post-delivery pending this am. Bleeding has improved. Continue to monitor clinically. - Continue routine post delivery care. - Regarding nephrostomy tube, spoke with Dr. Killian (Urologist) on 25Sep. Advised pt needs f/u CT scan for further eval of stone burden. He agreed to facilitate that as an outpt. Pt to f/u with him within a few days of hospital d/ c. - Pt agreed with above plan, all current questions answered. Walter Hayes MD, PGY1 Environmental Services Director Physician Supervision Note: I interviewed and examined the patient. Discussed with Dr. Hayes and agree with findings and plan as documented in the note. Any exceptions or clarifications are listed here: Patient now states she has outpatient CT appointment scheduled for nephrostomy tube. Documented By: Gwendolyn Ray Resident Tracking Resident Involvement: Resident Care Provided Care Provided: OB Delivery (OB rounds)
[2016-12-19 06:49] LABS: BASO % 0.3 %; BASO ABS # 0.04 K/uL (0-0.2); COMPLETE YES; EOS % 1.6 %; HEMATOCRIT 32.8 % (37-47); IG% 0.8 %; LYMPH % 21.8 %; LYMPH ABS # 2.61 K/uL (1.2-3.4); MEAN CELL VOLUME 91.4 fL (80-100); MEAN CORPUSCULAR HEMOGLOBIN 30.1 pg (25-34); MEAN CORPUSCULAR HGB CONC 32.9 g/dl (32-36); MONO % 7.4 %; NEUT % 68.1 %; PLATELET COUNT 207 K/uL (130-400); RED BLOOD COUNT 3.59 M/uL (4.2-5.4); WHITE BLOOD COUNT 11.95 K/uL (4.8-10.8)
[2016-12-19] MEDS: PRENATAL VITAMIN TAB PO SCH (08:53)
[2016-12-19] MEDS: SIMETHICONE 80 MG CHEW PO SCH ×4 (08:53→19:41)
[2016-12-19] MEDS: DOCUSATE SODIUM 100 MG CAP PO SCH ×2 (08:54→19:41)
[2016-12-19 09:00] VITALS: BP 96/61; PULSE 66; TEMP 36.6
[2016-12-19 09:15] VITALS: O2SAT 98
[2016-12-19 15:50] VITALS: BP 96/57; TEMP 36.8; O2SAT 98
[2016-12-19] MEDS: MEPERIDINE HCL 50 MG/ML CARP IV PRN ×2 (16:01→21:43)
[2016-12-19 22:40] VITALS: BP 119/75; PULSE 65; TEMP 36.6
[2016-12-20] MEDS: OXYCODONE/ACETAMINOPHEN 5-325 TAB PO PRN ×5 (04:01→22:28)
[2016-12-20 06:48] LABS: HEMATOCRIT 32.7 % (37-47)
[2016-12-20 07:43] VITALS: BP 92/57; PULSE 56; TEMP 36.6
--- NOTE | 2016-12-20 07:49 | Progress Note ---
Subjective Dec 20, 2016. Subjective conversation w/ patient, conversation w/ family, chart review, lab review Ambulation: ambulating normally Diet Tolerance: Regular Diet Lochia: Moderate Objective Vital Signs Date Time Temp Pulse Resp B/P (MAP) Pulse Ox O2 Delivery O2 Flow Rate FiO2 12/19/16 22:40 36.6 65 16 119/75 12/19/16 22:40 Room Air 12/19/16 15:50 36.8 18 96/57 12/19/16 15:50 98 Room Air 12/19/16 09:15 98 Room Air 12/19/16 09:00 36.6 66 16 96/61 Physical Exam General Appearance: WELL-APPEARING Abdomen: non tender Fundus: Firm Extremities: no calf tenderness Laboratory Results Last 24 Hours Test 12/20/16 06:15 Hemoglobin 10.4 g/dL Hematocrit 32.7 % Assessment and Plan Problem List Medical Problems: (1) Left flank pain Status: Acute (2) Near syncope Status: Acute (3) with hydronephrosis in third trimester Status: Acute (4) Right flank pain Status: Acute Post-Op Day#: 2 Continue Routine Care: Has nephrostomy. CCC
[2016-12-20] MEDS: PRENATAL VITAMIN TAB PO SCH (08:25)
[2016-12-20] MEDS: DOCUSATE SODIUM 100 MG CAP PO SCH ×2 (08:25→20:30)
[2016-12-20] MEDS: SIMETHICONE 80 MG CHEW PO SCH ×4 (08:27→20:30)
[2016-12-20 14:47] LABS: COD UR NEGATIVE NG/ML (CUTOFF=50); HYDROCOD UR NEGATIVE NG/ML (CUTOFF=50); HYDROMOR UR NEGATIVE NG/ML (CUTOFF=50); MORPHINE UR 1440 NG/ML (CUTOFF=50); NORHYDROCODONE CONF UR NEGATIVE NG/ML (CUTOFF=50); OXYMORPH UR 356 NG/ML (CUTOFF=50)
[2016-12-20 16:00] VITALS: BP 108/66; PULSE 70; TEMP 36.7
[2016-12-20] MEDS: IBUPROFEN 600 MG TAB PO PRN ×2 (17:49→22:27)
[2016-12-20] MEDS ORDERED: MEPERIDINE 50 MG TAB PO PRN (20:00)
[2016-12-20 23:45] VITALS: BP 109/71; PULSE 62; TEMP 36.7
[2016-12-21] MEDS: OXYCODONE/ACETAMINOPHEN 5-325 TAB PO PRN ×3 (03:47→13:14)
[2016-12-21] MEDS: IBUPROFEN 600 MG TAB PO PRN ×3 (03:47→13:14)
[2016-12-21] MEDS ORDERED: MTR600X PO (05:14)
[2016-12-21] MEDS ORDERED: OXYC-57 PO (05:14)
--- NOTE | 2016-12-21 05:16 | Discharge Instructions ---
Discharge Instructions Date of Service Dec 21, 2016. Admission Reason for Admission: With 37 Wekks Completed Gastation Discharge Discharge Diagnosis / Problem: recovery from Discharge Goals Goal(s): Routine recovery after Activity Recommendations Activity Limitations: per Instructions/Follow-up section . Instructions / Follow-Up Instructions / Follow-Up ACTIVITY RECOMMENDATIONS: * Gradual return to full activity over the next 2-3 weeks. * No lifting - nothing heavier than baby over the next 2-3 weeks. * Do not engage in vigorous exercise, sexual activity or sports until cleared by your physician. * Do not drive or operate any motorized equipment until cleared by your physician. * You may shower/bathe daily. MEDICATIONS: For discomfort or pain, you may use Acetaminophen (Tylenol), Ibuprofen (Advil), or Naproxen (Aleve) following the package directions. For constipation you may use Colace following the package directions. BREAST CARE: If you are not breast feeding: * Wear a supportive bra 24 hours a day for one to two weeks. * Avoid stimulating your breasts and nipples as much as possible during the first few weeks after delivery. * When taking a shower, have the warm water hit your back, not breasts. * When your breasts feel full, apply ice packs. Usually three to four times a day helps ease the discomfort. * Take a mild pain medication (Tylenol / Motrin) when you are uncomfortable. If breast feeding: * Use breast milk to lubricate nipples. Lansinoh cream may be used for sore nipples. You do not need to remove cream prior to breast feeding. If using a different brand of cream, check the label for directions regarding removal of cream prior to nursing. * Wear a supportive bra. * If having problems with breasts or breast feeding, call a leadership development consultant or your health care provider. SPECIAL CARE INSTRUCTIONS: When you are discharged from the hospital, it is important for you to follow the instructions listed below: * During the first week at home, you should be able to care for yourself and your baby. In addition, the usual light household activities are encouraged. * Limit your activities to the way you feel. Do not try to clean the house or move furniture. Be sensible. * If you actively engage in sports and have done so up until the time of your delivery, you may resume these activities as soon as you feel able. This may take up to one month or even longer. Use good judgment. * Continue to take your vitamins for at least six weeks after the of your baby. * Your diet need not be limited unless you were on a special diet before your delivery. Breast-feeding mothers need around 2500 calories per day and at least 64-80 ounces of fluid per day (8 to 10 glasses). * You should eat foods from the four major food groups. Crash diets or fad diets are to be avoided. Eating lean meats, fresh fruits and vegetables, low-fat dairy products, high fiber foods and a regular exercise program, will help you get back to your pre- weight without putting your health at risk. * Constipation is sometimes a problem after delivery. Take a mild laxative as needed. If breast feeding, Milk of Magnesia is acceptable to use. You may use a suppository or Fleets enema. * A daily shower or tub bath is suggested. Wash incision daily with warm soapy water and pat dry. It doesn't need to be covered unless drainage is present. * A bloody vaginal discharge will usually continue until around four weeks . A small amount of bleeding may continue for as long as six weeks. Vaginal discharge changes from the bright red bleeding after delivery to pink then brownish and finally yellowish-pink before becoming white and disappearing. * Bleeding may increase with activity. Your first period may come in 4-8 weeks. If you are breast feeding, your period may be delayed even longer. * [place] (sex) can begin whenever both you and your partner feel comfortable and do not have any form of genital infection. It is recommended that you wait at least six weeks for internal and external healing to occur. If you have questions, please talk to your health care practitioner. A condom should be used to prevent infection and . * Foreplay, gentle intercourse and lubrication is very important the first several times to prevent pain. A water-based lubricant such as K-Y jelly or Astroglide may be used. * If you have RH negative blood and your baby is RH positive, you will receive RHOGAM by injection prior to discharge. The nurse will give you a card to keep with you that has the date and place that you received RHOGAM after delivery. * During your care, you had a Rubella screen done to check for the presence of rubella antibodies in your blood. If your test was negative, you will receive a Rubella vaccine prior to discharge. This vaccine may cause a fever, soreness at the injection site and flu-like symptoms. If these symptoms persist, notify your health care practitioner. is not advised for one month after a Rubella vaccine. * Verbalizes understanding of car seat law as reviewed with patient nursing. * Car Seat hand-out given and reviewed with patient by nursing. * Shaken baby information reviewed with patient by nursing. Call you doctor if: * Heavy bleeding (saturating several pads an hour) or passing clots the size of your fist. * A fever >101 degrees F (38.3 degrees C) on two occasions four hours apart and /or chills. * Unusual pain in the pelvic or vaginal areas. * Call the doctor for any increased redness, drainage or swelling around the incision and any pain unrelieved by prescribed pain medication. * "Baby Blues" lasting longer than two weeks. If you have any questions or concerns, call your health care practitioner at . FOLLOW UP VISIT: * Please call the office at to schedule a 6 week examination. It is important you keep this appointment. It is important for you to make arrangements for either yearly or twice yearly check-ups thereafter. Current Hospital Diet Patient's current hospital diet: Regular OB Diet Discharge Diet Recommended Diet: Regular OB Diet Procedures Procedures Performed: Section Pending Studies Studies pending at discharge: no Medical Emergencies . Who to Call and When: Medical Emergencies: If at any time you feel your situation is an emergency, please call [phone] immediately. . Non-Emergent Contact Non-Emergency issues call your: Optician Manager, Urologist . . "Provider Documentation" section prepared by Martha Person. . VTE Core Measure Inpt VTE Proph given/why not?: Treatment not indicated
--- NOTE | 2016-12-21 07:54 | OB/GYN Progress Note ---
HOUSEHOLD APPLIANCES SERVICE TECHNICIAN Progress Note Date of Service Dec 21, 2016. Subjective conversation w/ patient, physical exam, chart review, review of studies Ambulation: ambulating normally Voiding: no voiding problems Passing Gas: Yes Diet Tolerance: Regular Diet Lochia: Small Feeding Type: Breast Feeding Pain: Mild cramping Notes: Found pt resting comfortably, no overnight events, no acute concerns. Needed to doses of po demerol because of maxing out on acetaminophen for 24 hours. c/o of burning at incision site as well as soreness. Review of Systems Constitutional: No fever, No chills Respiratory: No cough, No shortness of breath Cardiac: No chest pain, No edema Abdomen: No nausea, No vomiting, No diarrhea Female : No dysuria Objective Vital Signs Date Time Temp Pulse Resp B/P (MAP) Pulse Ox O2 Delivery O2 Flow Rate FiO2 12/20/16 23:45 Room Air 12/20/16 23:45 36.7 62 18 109/71 (84) Room Air 12/20/16 17:10 Room Air 12/20/16 16:00 36.7 70 16 108/66 (80) Room Air 12/20/16 09:10 Room Air Physical Exam General Appearance: WD/WN, NO APPARENT DISTRESS Respiratory/Chest: lungs clear, normal breath sounds, no respiratory distress Cardiovascular: regular rate, rhythm, no edema, no murmur Abdomen: normal bowel sounds, non tender, soft Fundus: Firm, Non-Tender, Relation to Umbilicus (approx three down) Incision Description: Clean, Dry & Intact (steristrips in place, no erythema or d/c) Extremities: non-tender, no pedal edema, no calf tenderness Assessment and Plan Post-Op Day Number: 3 Continue Routine Care: Resident Physician Supervision Note: I interviewed and examined the patient. Discussed with Dr. Hayes and agree with findings and plan as documented in the note. Any exceptions or clarifications are listed here: Besides the motrin & percocet scripts , I will give her a few Demerol tabs. Documented By: Martha Person 21F s/p scheduled repeat due to nephrostomy tube, now PPD #3. - Blood type O positive. GBS negative. Rubella immune. - Vital signs reviewed and stable. - Pain controlled with percocet. - No leg swelling or tenderness on calf palpation. Encourage ambulation. - Encourage breast feeding. - Hemoglobin pre-delivery 11.2, post-delivery 10.8 & 10.4. Continue to monitor clinically. - Continue routine post delivery care. - Regarding nephrostomy tube, spoke with Dr. Killian (Urologist) on 25Sep. Advised pt needs f/u CT scan for further eval of stone burden. He agreed to facilitate that as an outpt. Pt to f/u with him within a few days of hospital d/ c. - Pt agreed with above plan, all current questions answered. Walter Hayes MD, PGY1 Family Medicine
[2016-12-21 08:00] VITALS: BP 117/76; PULSE 60; TEMP 36.5; O2SAT 98
[2016-12-21] MEDS ORDERED: MPR50 PO (08:13)
[2016-12-21] MEDS: SIMETHICONE 80 MG CHEW PO SCH ×2 (08:15→12:26)
[2016-12-21] MEDS: DOCUSATE SODIUM 100 MG CAP PO SCH (08:15)
[2016-12-21] MEDS: PRENATAL VITAMIN TAB PO SCH (08:15)
[2016-12-21 15:57] VITALS: BP 117/76; PULSE 60; TEMP 36.5; O2SAT 98
[2016-12-21 16:00] VITALS: BP 122/67; PULSE 74; TEMP 36.8; O2SAT 98
[2016-12-21 17:00] VITALS: BP_DIAS 67; PULSE 74; TEMP 36.8
--- NOTE | 2016-12-26 00:01 | DISCHARGE SUMMARY ---
ADMISSION DIAGNOSES: 1. Intrauterine at 37 and 3/7th weeks. 2. History of previous delivery. 3. Early active labor. 4. History of left renal obstruction with left nephrostomy tube. DISCHARGE DIAGNOSES: Same. PROCEDURE: Repeat lower transverse section. HISTORY OF PRESENT ILLNESS: The patient is a 21-year-old 2, para 1-0-0-1 with an EDC of 01/05/2017 making her 37 and 3/7th weeks by ultrasound dating. The has been complicated by a left partial renal obstruction with nephrostomy tube placed in [place]. She has had a previous section for failure to progress and failed an induction. She was instructed by the [place] renal doctors that she would need to have a repeat delivery. She presents to labor and delivery today with painful contractions. She notes no leakage of fluid or vaginal bleeding. She notes no good movement. She is very uncomfortable with these contractions, they are every 2-3 minutes on the monitor and do palpate mild to moderate. When she was initially checked, she was closed, thick, and high. Over the course of observation where she underwent aggressive IV fluid hydration management, Demerol therapeutic rest and 1 dose of terbutaline, the contractions did not space and in fact her cervix changed to a loose in 75%. Therefore, I think she is in early labor and will proceed with repeat section. For the rest of the patient's detailed history and physical, please see her dictated history and physical. ASSESSMENT: This is a 21-year-old 2, para 1-0-0-1 with a history of previous section, who has had a left nephrostomy tube placed in this and who presents in early active labor. It was recommended by her renal doctors in [place] that she have a repeat section and given that she has demonstrated labor, we will proceed with delivery. HOSPITAL COURSE: The patient underwent a repeat lower transverse section without difficulty. Estimated blood loss 600 mL. She delivered a viable female in cephalic presentation with Apgars of 9 and 9. Normal uterus, tubes, and ovaries were noted bilaterally. The patient's postoperative course was uncomplicated. She tolerated a regular diet, voided without difficulty after the removal of her Martinez catheter. Her pain was well controlled with oral pain medication. She did note burning at her incision site and some soreness and did require some p.o. Demerol in addition to acetaminophen as SHE HAS A NONSTEROIDAL ANTI-INFLAMMATORY ALLERGY. She was discharged home on postoperative day #3. She was . Her post-delivery hemoglobin was 10.4. She was set up with Dr. Killian, her nephrostomy tube rather was discussed with Dr. Killian, who advised the patient needs a CT scan for further evaluation of stone burn and he agreed to facilitate that as an outpatient. The patient was to follow up with him in a few days of her hospital discharge.
[2016-12-28] MEDS ORDERED: OXYC-57 PO (12:08)
[2016-12-28] MEDS ORDERED: VANC1INJ94 IV ×2 (12:34→14:56)
== END 2016-12-21 18:25 | disposition home or self-care (01) | DRG 765 ==
LOC: C.OPB 18:05 → C.LD 18:05 → C.OPB 23:15 → C.LD 23:15 → OBSVTOIN 23:51 → C.OBG 12-18 05:53
PROVIDERS: ADMIT Obstetrics & Gynecology; ATTEND Obstetrics & Gynecology
PROC: 10D00Z1 Extraction of Products of Conception, Low, Open Approach (ICD-10-PCS; principal; 2016-12-17)
DX: O34.219 Maternal care for unspecified type scar from previous cesarean delivery (principal); O26.833 Pregnancy related renal disease, third trimester; Z37.0 Single live birth; Z3A.37 37 weeks gestation of pregnancy; Z93.6 Other artificial openings of urinary tract status; N28.89 Other specified disorders of kidney and ureter

== ENCOUNTER 2016-12-24 14:45 | Inpatient (IN) | payer OTHER ==
[~2016-12-24] VITALS: Ht 154.9 cm; Wt 56.3 kg
[~2016-12-24 14:45] MED LIST changes: +MPR50 PO; +MTR600X PO; -NITR-5 PO
[2016-12-24] MEDS ORDERED: ONDANSETRON INJ 2 MG/ML 2 ML VIAL IV STA (15:08)
[2016-12-24] MEDS ORDERED: SODIUM CHLORIDE 0.9% 1000ML 1,000 ML IV STA (15:08)
[2016-12-24] MEDS ORDERED: HYDROmorphone INJ 0.5 MG/0.5 ML SYR IV STA (15:08)
[2016-12-24] MEDS ORDERED: ACETAMINOPHEN IV 650 MG in EMPTY BAG 0 ML IV ONE (15:45)
[2016-12-24 15:50] LABS: MANUAL MICROSCOPIC REQUIRED? NO; REVIEW REQ? NO; URINE APPEARANCE CLOUDY (CLEAR); URINE BILIRUBIN NEG (NEG); URINE COLOR YELLOW; URINE NITRITE NEG (NEG); URINE PH 5.5 (4.5-7.5); URINE SPECIFIC GRAVITY 1.025 (1.000-1.030); UROBILINOGEN NEG (NEG)
[2016-12-24 16:20] LABS: BASO % 0.2 %; BASO ABS # 0.02 K/uL (0-0.2); COMPLETE YES; EOS % 0.1 %; HEMATOCRIT 35.5 % (37-47); IG% 0.2 %; LYMPH % 15.7 %; LYMPH ABS # 1.52 K/uL (1.2-3.4); MEAN CELL VOLUME 90.6 fL (80-100); MEAN CORPUSCULAR HEMOGLOBIN 30.4 pg (25-34); MEAN CORPUSCULAR HGB CONC 33.5 g/dl (32-36); MEAN PLATELET VOLUME 9.1 fL (7.4-10.4); MONO % 8.3 %; NEUT % 75.5 %; PLATELET COUNT 190 K/uL (130-400); RED BLOOD COUNT 3.92 M/uL (4.2-5.4); WHITE BLOOD COUNT 9.71 K/uL (4.8-10.8)
[2016-12-24 16:37] LABS: ALT/SGPT 28 U/L (12-78); AST/SGOT 15 U/L (15-37); BLOOD UREA NITROGEN 14 mg/dl (7-18); BUN/CREATININE RATIO 16.5 (10-20); CALCIUM 8.8 mg/dl (8.5-10.1); CARBON DIOXIDE 24 mmol/L (21-32); CHLORIDE 105 mmol/L (98-107); CREATININE 0.82 mg/dl (0.60-1.20); GLUCOSE 98 mg/dl (70-99); POTASSIUM 3.6 mmol/L (3.5-5.1); SODIUM 138 mmol/L (136-145)
[2016-12-24 16:40] LABS: ALKALINE PHOSPHATASE 148 U/L (45-117)
[2016-12-24] MEDS ORDERED: HYDROmorphone INJ 1 MG/ML SYR IV STA (17:03)
--- NOTE | 2016-12-24 17:17 | DIAGNOSTIC IMAGING REPORT ---
PELVIC COMPLETE NON OB HISTORY: 21 years-old Female ABDOMINAL PAIN/N/V/D acute pelvic pain with nausea, vomiting and diarrhea. Acute fever status post recent . COMPARISON: Renal ultrasound 11/19/2016 TECHNIQUE: Multiple real-time sonographic images of the deep pelvic structures were obtained transabdominally assessing grayscale appearance, and color flow. FINDINGS: Patient status post on 12/18/2016 per history. Transvaginal portion of the study was not conducted. Uterus measures 11.0 x 7.2 x 8.1 cm and is heterogeneous in its appearance, likely secondary to physiologic post gravid state. No definite retained products of conception identified. Endometrium measures 0.4 cm. Trace fluid is seen within the endometrial cavity. Ovaries not visualized transabdominally. No significant free pelvic fluid identified. IMPRESSION: 1. Enlarged mildly heterogeneous post gravid uterus with trace fluid within the endometrial cavity. No definite retained products of conception are identified at this time. 2. No significant free pelvic fluid. 3. Nonvisualization of the ovaries. The above report was generated using voice recognition software. It may contain grammatical, syntax or spelling errors. Electronically signed by: Walter Rao M.D. 12/24/2016 5:16 PM Dictated Date/Time: 12/24/2016 5:12 PM
[2016-12-24] MEDS: LACTATED RINGER'S 1000ML 1,000 ML IV SCH (18:16)
[2016-12-24] MEDS ORDERED: ACETAMINOPHEN 325 MG TAB PO PRN (18:30)
[2016-12-24] MEDS ORDERED: OXYCODONE/ACETAMINOPHEN 5-325 TAB PO PRN (18:30)
[2016-12-24] MEDS ORDERED: GENTAMICIN CONSULT ACTIVE PRN (19:15)
[2016-12-24] MEDS ORDERED: CLINDAMYCIN IV 900 MG in DEXTROSE 5% 100ML 100 ML IV ONE (19:15)
[2016-12-24 20:00] VITALS: BP 124/67; PULSE 100; TEMP 39.2; O2SAT 100; Ht 154.9 cm; Wt 56.3 kg
[2016-12-24] MEDS ORDERED: OPTIRAY 320 IV PRN (20:00)
[2016-12-24] MEDS: OXYCODONE/ACETAMINOPHEN 5-325 TAB PO PRN (20:18)
--- NOTE | 2016-12-24 20:23 | Pharmacy Progress Note ---
Pharmacy Abx Dose Short Note Date of Service Dec 24, 2016. Assessment & Plan Assessment 21 year old female presenting with 1 week endometritis. Ordered Gent -IV per pharmacy consult and Clinda 900mg IV every 8 hours. Pharmacy consulted to order/monitor IV Gent. Scr=0.82mg/dL, estimated GFR > 100mL/min. Plan: Will order extended interval (5mg/kg IV every 24 hours) as the more convenient and cost-effective and as efficacious and safe as thrice daily dosing (1.5mg/kg IV every 8 hours) for patients with normal renal function. Gent levels do not need to be monitored in patients receiving this regimen on a short-term basis (less than 3 days). Gentamycin: * Ordering Gent 280mg (~5mg/kg) IV every 24 hours. Pharmacy will continue to follow and will adjust dose/frequency as necessary. Thank you.
--- NOTE | 2016-12-24 20:38 | HISTORY & PHYSICAL EXAMINATION ---
DATE OF CONSULTATION: 12/24/2016 CHIEF COMPLAINT: Fever, shaking chills. HISTORY OF PRESENT ILLNESS: A 21-year-old, 2, para 1-0-0-1, now approximately postop day #7 from repeat low transverse section who called today with the above chief complaint. The patient noted not feeling well for the last couple of days. She began yesterday with high fevers and called me today when it reached 103. She was having chills and sweats. She is . She denies any symptoms of breast tenderness, pain or lumps. She was getting good output of breast milk with pumping. She reported no URI symptoms. She denies any burning, frequency or urgency of urination. Of note, she does have a nephrostomy tube placed because of renal stones during the with a plan for a CT scan and removal of nephrostomy tube; that was to be arranged to urology. She denies any kidney pain or pain related to her history of kidney stones. She reports no issues with her bowels. She is having regular bowel movements. She denies any back pain. She denies any leg pain, chest pain or shortness of breath. She does report abdominal pain and incisional burning. The abdominal pain is different from the incisional burning and began a few days ago, shortly before the onset of her fevers. She denies any vaginal bleeding that is significant. She reports no abnormal vaginal discharge. She was evaluated by the Emergency Room [facility] I was called for a consultation. PAST OBSTETRIC AND GYNECOLOGIC HISTORY: Prior section at 30 and 4/7 weeks in 2014 and section last week on 12/18/2016. Father of the baby is hepatitis C positive, but the patient has tested hepatitis C negative x2 in the . No history of abnormal Pap smears. PAST MEDICAL HISTORY: History of kidney stones; history of depression and anxiety, no medications; history of asthma; history of MRSA in 2011 hospitalized x1 month. PAST SURGICAL HISTORY: Ovarian cystectomy, cholecystectomy, x2, wisdom teeth removed, appendectomy and I&D of her MRSA lesions. ALLERGIES: TORADOL, MORPHINE, PENICILLINS AND PROMETHAZINE. MEDICATIONS: Vitamins. REVIEW OF SYSTEMS: As per the HPI. PHYSICAL EXAMINATION: VITAL SIGNS: Temperature is 38.3 on arrival now 38.1, pulse 114, respirations 20, blood pressure 123/65 and pulse ox 97% on room air. GENERAL: She is an ill-appearing female, sitting upright in ER hospital room pumping her left breast. With movement/position change the patient does wince and has difficulty moving and is also protective of her left nephrostomy tube. ABDOMEN: Soft, mild diffuse tenderness, but significant tenderness with palpation of the fundus. Fundus about 2cm below umbilicus. Incision is clean, dry and intact. There is no evidence of erythema. Steri strips are in place. EXTREMITIES: Nontender calves. PELVIC: Normal external female genitalia. Normal BUS. Vagina pink without lesions, minimal blood within the vault. Bimanual exam reveals no significant bladder neck tenderness, significant cervical motion tenderness and tenderness with uterine palpation is noted. Imaging report of u/s and labs reviewed. ASSESSMENT: 1. Endomyometritis. 2. Known nephrostomy tube for history of kidney stones. PLAN: I have discussed with the patient that given her findings and no other localizing signs I am concerned about endomyometritis. I recommend observation and administration of IV antibiotics using her temperature curve as our gauge for improvement. She did only have a white count of 9.7. We will check her CBC again in the morning. We will allow her to eat and allow her to breastfeed. We will use p.o. pain medications. We will see how she responds. I did discuss with Dr. Killian the plan for her nephrostomy tube as there was a plan for a CT and removal of nephrostomy tube. The patient has already been prepped for a CT in the ER and therefore we will proceed with obtaining that so that perhaps her nephrostomy tube can be removed by the urologist later this week pending results of the study. I do feel that the nephrostomy tube currently is unrelated to her abdominal pain and current working diagnosis. I explained all of that to the patient. We have not obtained a straight cath urine as she has not felt the urge to void yet. We will try to obtain the straight cath urine specimen before initiating the antibiotics. We will plan clindamycin and gentamicin. We will plan that gentamicin dosing be determined by pharmacy. [facility]
--- NOTE | 2016-12-24 20:38 | DIAGNOSTIC IMAGING REPORT ---
ABD/PELVIS IV AND ORAL CONT HISTORY: 21 years-old Female ABDOMINAL PAIN/GI acute generalized abdominal pain with recent . Acute fever. COMPARISON: Pelvic ultrasound 12/24/2016, renal ultrasound 11/19/2016 TECHNIQUE: Multiple axial CT images of the abdomen and pelvis were obtained following the intravenous administration of 116 mL Optiray 320. Oral contrast also utilized. A dose lowering technique was used consistent with the principals of CHAD. FINDINGS: Lung bases are generally clear. No pneumoperitoneum identified. Imaged inferior cardiac chambers are unremarkable. 3 mm low attenuating circumscribed lesion of the anterior right hepatic lobe is too small to characterize or suggests cyst. No intrahepatic biliary ductal dilation. Prior cholecystectomy. Spleen, pancreas and adrenal glands are within normal limits. There is a focal wedge-shaped area of decreased attenuation involving the superior pole left kidney, 2.2 x 1.3 cm with additional scattered areas of heterogeneous attenuation noted involving the interpolar and inferior pole left kidney as seen on several images. Percutaneous left-sided nephrostomy catheter is noted with distal tip terminating in the region of the left UPJ. There is mild dilation of the central and peripheral calyces on the left. Scattered nonobstructing renal calculi are present on the right measuring up to 3 mm. There is mild prominence of the right renal collecting system and right ureter without obstructing stone or calculus identified. Urinary bladder is unremarkable. Uterus appears enlarged and heterogeneous with trace fluid seen within the endocervical canal. No significant free pelvic fluid. The abdominal aorta is normal in course and caliber. No bulky retroperitoneal adenopathy. Mildly prominent left periaortic lymph node at the level of the left kidney, 1.2 x 1.1 cm is likely reactive. There is no focal bowel wall thickening or bowel obstruction. The appendix appears normal. Post surgical changes are seen along the anterior abdominal wall. The postsurgical collection identified. Mildly prominent nonspecific inguinal lymph nodes are seen. Bones are intact. There is mild fragmentation of the pubic symphysis suspicious for osteitis pubis. IMPRESSION: 1. Left-sided percutaneous nephrostomy catheter in place with multifocal wedge-shaped areas of decreased attenuation of the left kidney as above suggesting multifocal pyelonephritis. 2. Multiple right-sided nonobstructing renal calculi. Mild prominence of the bilateral renal collecting systems without obstructing stone or mass identified may be residual post-gravid changes. 3. Post-gravid enlarged and heterogeneous appearance of the uterus, better evaluated on comparison ultrasound of same day. 4. Prior cholecystectomy. 5. Normal appendix. The above report was generated using voice recognition software. It may contain grammatical, syntax or spelling errors. Electronically signed by: Walter Rao M.D. 12/24/2016 8:37 PM Dictated Date/Time: 12/24/2016 8:27 PM
[2016-12-24 21:00] LABS: MANUAL MICROSCOPIC REQUIRED? NO; REVIEW REQ? NO; URINE APPEARANCE CLEAR (CLEAR); URINE BILIRUBIN NEG (NEG); URINE COLOR YELLOW; URINE NITRITE NEG (NEG); URINE PH 6.5 (4.5-7.5); URINE SPECIFIC GRAVITY 1.023 (1.000-1.030); UROBILINOGEN NEG (NEG)
[2016-12-24 21:45] VITALS: TEMP 38
[2016-12-24] MEDS: GENTAMICIN INJ 280 MG in DEXTROSE 5% 100ML 100 ML IV SCH (22:17)
[2016-12-24 22:22] VITALS: TEMP 37.9
[2016-12-24 23:15] VITALS: BP 119/70; PULSE 68; TEMP 37.4; O2SAT 98
[2016-12-24] MEDS: IBUPROFEN 600 MG TAB PO PRN (23:27)
[2016-12-25] VITALS (7 sets, daily range): BP systolic 98–134; BP diastolic 47–70; PULSE 52–76; TEMP 36.8–38.8; O2SAT 97–99
--- NOTE | 2016-12-25 00:36 | EMERGENCY ROOM VISIT NOTE ---
ED Visit Note First contact with patient: 14:58 Chief Complaint: Having pain in the area of my incision. History of Present Illness: Ms. Mayers is a 21 year-old white female who ambulates into the ED accompanied by female friend complaining of quadrant abdominal pain. Historically patient reports she is status post section from December 18 without any reported complications. This is her second section and she is also status post appendectomy, cholecystectomy, and an ovarian cystectomy. She also currently has a left nephrostomy tube in place from approximate 4 weeks ago. Patient reports a vaginal increase of incisional abdominal pain that started 3 days ago. Initially it was mild and has gradually increased in intensity. She places her discomfort in the area of her section insertion in the suprapubic area. She describes her pain as a burning sensation and a deep aching sensation. She rates her discomfort 7/10. Her pain is nonradiating. Her purring worsens with palpation and movements at the waist. She has not identified any alleviating factors related to the pain. Associated with her pain she reports that she has been have fevers for the last 24 hours, a bifrontal headache; she describes this as a throbbing sensation and rates this discomfort 4/10, and nausea without vomiting. She has been using acetaminophen for her symptoms without relief of her discomfort or full relief of her fever. Onset of quadrant abdominal pain that started approximately hours ago. Since that time the pain has been . The pain is currently described as . The pain is nonradiating. The pain worsens with and is improved by . has been taken for pain and relief has been achieved. Associated with the pain there has been . Patient denies sweats, skin eruptions, skin color changes, upper respiratory tract symptoms, shortness of breath, chest pain, diarrhea, constipation, rectal bleeding, black/tarry stools, urinary symptoms, hematuria, back/flank pain. Review of Systems: As noted above in history of present illness. All body systems were reviewed and found to be negative as noted above. Past Medical History: As noted above, unspecified heart murmur, kidney stones, depression, anxiety, asthma and MRSA infection. Current Medications: Patient denies. Allergies to Medications: Ketorolac, morphine, penicillin, promethazine. Social History: Patient is not employed; she feels safe in her home environment ; she denies tobacco use. Physical Examination: Vital Signs: Date Time Temp Pulse Resp B/P (MAP) Pulse Ox O2 Delivery O2 Flow Rate FiO2 12/24/16 17:29 12/24/16 16:58 38.1 114 20 123/65 97 Room Air 12/24/16 14:53 38.3 115 18 128/69 99 Room Air GENERAL: 21-year-old female in moderate distress due to pain, nontoxic-appearing , afebrile and hemodynamically stable. NEUROLOGICAL: Awake, alert and oriented to person, place and time. Answering questions appropriately and following commands. Normal gait. Good hand eye coordination. SKIN: Warm, dry and pink. Surgical Site: Clean, dry and intact without signs of infection. Steri-Strips are still in place. HEENT: Atraumatic and normocephalic. PERRLA. Sclera white and conjunctiva pink. Speech normal. No lymphadenopathy. Trachea midline. No jugular venous distention. BACK: No tenderness over the bony spine. No CVA tenderness. THORAX: Lungs sounds are clear to auscultation and equal bilaterally with symmetrical chest wall. No wheezing, rales or rhonchi. No crepitus, tenderness , subcutaneous air or deformities noted. HEART: Regular rate and rhythm. No gallops, rubs or murmurs are appreciated. ABDOMEN: Flat and soft with moderate tenderness over her incision and throughout the abdomen with guarding. Positive bowel sounds in all quadrants. No guarding, rigidity or organomegaly. EXTREMITIES: Moves all extremities well on command and with purpose. All distal neurovascular statuses are intact and equal bilaterally. ED Course: Patient is assessed as noted above. Laboratory Testing: Test 12/24/16 15:23 12/24/16 16:03 12/24/16 16:58 Range/Units Urine Color YELLOW Urine Appearance CLOUDY CLEAR Urine pH 5.5 4.5-7.5 Urine Specific [place] 1.025 1.000-1.030 Urine Protein TRACE NEG Urine Glucose (UA) NEG NEG Urine Ketones NEG NEG Urine Occult Blood 2+ NEG Urine Nitrite NEG NEG Urine Bilirubin NEG NEG Urine Urobilinogen NEG NEG Urine Leukocyte Esterase MODERATE NEG Urine WBC (Auto) >30 0-5 /hpf Urine RBC (Auto) >30 0-4 /hpf Urine Hyaline Casts (Auto) 10-30 0-5 /lpf Urine Epithelial Cells (Auto) 10-20 0-5 /lpf Urine Bacteria (Auto) 3+ NEG White Blood Count 9.71 4.8-10.8 K/uL Red Blood Count 3.92 4.2-5.4 M/uL Hemoglobin 11.9 12.0-16.0 g/dL Hematocrit 35.5 37-47 % Mean Corpuscular Volume 90.6 80-100 fL Mean Corpuscular Hemoglobin 30.4 25-34 pg Mean Corpuscular Hemoglobin Concent 33.5 32-36 g/dl Platelet Count 190 130-400 K/uL Mean Platelet Volume 9.1 7.4-10.4 fL Neutrophils (%) (Auto) 75.5 % Lymphocytes (%) (Auto) 15.7 % Monocytes (%) (Auto) 8.3 % Eosinophils (%) (Auto) 0.1 % Basophils (%) (Auto) 0.2 % Neutrophils # (Auto) 7.33 1.4-6.5 K/uL Lymphocytes # (Auto) 1.52 1.2-3.4 K/uL Monocytes # (Auto) 0.81 0.11-0.59 K/uL Eosinophils # (Auto) 0.01 0-0.5 K/uL Basophils # (Auto) 0.02 0-0.2 K/uL RDW Standard Deviation 43.8 36.4-46.3 fL RDW Coefficient of Variation 13.2 11.5-14.5 % Immature Granulocyte % (Auto) 0.2 % Immature Granulocyte # (Auto) 0.02 0.00-0.02 K/uL Sodium Level 138 136-145 mmol/L Potassium Level 3.6 3.5-5.1 mmol/L Chloride Level 105 98-107 mmol/L Carbon Dioxide Level 24 21-32 mmol/L Anion Gap 9.0 3-11 mmol/L Blood Urea Nitrogen 14 7-18 mg/dl Creatinine 0.82 0.60-1.20 mg/dl Est Creatinine Clear Calc Drug Dose 83.1 ml/min Estimated GFR () 117.7 Estimated GFR (Non- 101.6 BUN/Creatinine Ratio 16.5 10-20 Random Glucose 98 70-99 mg/dl Calcium Level 8.8 8.5-10.1 mg/dl Total Bilirubin 0.3 0.2-1 mg/dl Direct Bilirubin < 0.1 0-0.2 mg/dl Aspartate Amino Transf (AST/SGOT) 15 15-37 U/L Alanine Aminotransferase (ALT/SGPT) 28 12-78 U/L Alkaline Phosphatase 148 45-117 U/L Total Protein 7.1 6.4-8.2 gm/dl Albumin 2.8 3.4-5.0 gm/dl Lipase 115 73-393 U/L Lactic Acid Level 0.9 0.4-2.0 mmol/L Blood Culture: Pending Pelvic Ultrasound: Was reviewed by myself and read by the radiologist showing a enlarged mildly heterogeneous post gravid uterus with trace fluid within the endometrial cavity but no defined retained products of conception. No evidence of free pelvic fluid. Nonvisualized ovaries. Contrast Abdominal/Pelvic CT: Pending. Patient was hydrated with normal saline, and she received a total of 1.5 mg of the Dilaudid IV for pain, 650 mg of acetaminophen IV for her fever and 4 mg of Zofran IV. Patient was reassessed multiple times during her stay in the emergency department. Patient's case was reviewed with Dr. Ordonez; we agreed on diagnostic approach, treatment, disposition and plan. Patient's case was consulted with Dr. García, gynecology; she came in independently assessed the patient and made arrangements for observation/ admission. Patient was educated about today's findings. Clinical Impression: Endomyometritis. Decision-Making: Sara my differential diagnosis I considered postsurgical infection including abscess, retained products of conception, endomyometritis, ureter calculus and other causes. Disposition and Plan: A oswaldo be brought in the hospital for observation/ admission by Dr. García; please see her notes and orders for final disposition and plan.
[2016-12-25] MEDS: LACTATED RINGER'S 1000ML 1,000 ML IV SCH ×2 (02:00→20:51)
[2016-12-25] MEDS: OXYCODONE/ACETAMINOPHEN 5-325 TAB PO PRN ×4 (02:00→17:19)
[2016-12-25] MEDS: CLINDAMYCIN IV 900 MG in DEXTROSE 5% 100ML 100 ML IV SCH ×3 (04:31→19:39)
[2016-12-25 05:32] LABS: BASO % 0.3 %; BASO ABS # 0.03 K/uL (0-0.2); COMPLETE YES; EOS % 0.4 %; HEMATOCRIT 30.6 % (37-47); IG% 0.4 %; LYMPH % 22.4 %; LYMPH ABS # 2.09 K/uL (1.2-3.4); MEAN CELL VOLUME 90.5 fL (80-100); MEAN CORPUSCULAR HEMOGLOBIN 30.5 pg (25-34); MEAN CORPUSCULAR HGB CONC 33.7 g/dl (32-36); MEAN PLATELET VOLUME 9.2 fL (7.4-10.4); MONO % 11.8 %; NEUT % 64.7 %; PLATELET COUNT 174 K/uL (130-400); RED BLOOD COUNT 3.38 M/uL (4.2-5.4); WHITE BLOOD COUNT 9.33 K/uL (4.8-10.8)
--- NOTE | 2016-12-25 07:57 | Progress Note ---
Subjective Dec 25, 2016. Subjective conversation w/ patient, physical exam Ambulation: ambulating normally Voiding: no voiding problems Diet Tolerance: Regular Diet Lochia: Small Feeding Type: Breast Feeding Pain: does not feel any change in her pain thus far. Objective Vital Signs Date Time Temp Pulse Resp B/P (MAP) Pulse Ox O2 Delivery O2 Flow Rate FiO2 12/25/16 04:35 36.8 52 18 98/47 (64) 97 Room Air 12/24/16 23:15 37.4 68 20 119/70 (86) 98 Room Air 12/24/16 23:15 Room Air 12/24/16 22:22 37.9 12/24/16 21:45 38.0 12/24/16 20:00 100 Room Air 12/24/16 20:00 39.2 100 20 124/67 100 Room Air 12/24/16 20:00 39.2 100 20 124/67 (86) 100 Room Air 12/24/16 19:19 88 16 115/78 98 12/24/16 17:29 12/24/16 16:58 38.1 114 20 123/65 97 Room Air 12/24/16 14:53 38.3 115 18 128/69 99 Room Air Physical Exam General Appearance: WD/WN, uncomfortable, mild distress Respiratory/Chest: lungs clear Cardiovascular: regular rate, rhythm Abdomen: soft, + tenderness (across fundus) Fundus: Firm, Tender, Relation to Umbilicus (3 down) Incision Description: Clean, Dry & Intact (with steris) Extremities: non-tender Laboratory Results Last 24 Hours Test 12/24/16 15:23 12/24/16 16:03 12/24/16 16:58 12/24/16 20:30 Urine Color YELLOW YELLOW Urine Appearance CLOUDY CLEAR Urine pH 5.5 6.5 Urine Specific [place] 1.025 1.023 Urine Protein TRACE NEG Urine Glucose (UA) NEG NEG Urine Ketones NEG NEG Urine Occult Blood 2+ 2+ Urine Nitrite NEG NEG Urine Bilirubin NEG NEG Urine Urobilinogen NEG NEG Urine Leukocyte Esterase MODERATE SMALL Urine WBC (Auto) >30 /hpf 5-10 /hpf Urine RBC (Auto) >30 /hpf 5-10 /hpf Urine Hyaline Casts (Auto) 10-30 /lpf 0 /lpf Urine Epithelial Cells (Auto) 10-20 /lpf 5-10 /lpf Urine Bacteria (Auto) 3+ 1+ White Blood Count 9.71 K/uL Red Blood Count 3.92 M/uL Hemoglobin 11.9 g/dL Hematocrit 35.5 % Mean Corpuscular Volume 90.6 fL Mean Corpuscular Hemoglobin 30.4 pg Mean Corpuscular Hemoglobin Concent 33.5 g/dl Platelet Count 190 K/uL Mean Platelet Volume 9.1 fL Neutrophils (%) (Auto) 75.5 % Lymphocytes (%) (Auto) 15.7 % Monocytes (%) (Auto) 8.3 % Eosinophils (%) (Auto) 0.1 % Basophils (%) (Auto) 0.2 % Neutrophils # (Auto) 7.33 K/uL Lymphocytes # (Auto) 1.52 K/uL Monocytes # (Auto) 0.81 K/uL Eosinophils # (Auto) 0.01 K/uL Basophils # (Auto) 0.02 K/uL RDW Standard Deviation 43.8 fL RDW Coefficient of Variation 13.2 % Immature Granulocyte % (Auto) 0.2 % Immature Granulocyte # (Auto) 0.02 K/uL Sodium Level 138 mmol/L Potassium Level 3.6 mmol/L Chloride Level 105 mmol/L Carbon Dioxide Level 24 mmol/L Anion Gap 9.0 mmol/L Blood Urea Nitrogen 14 mg/dl Creatinine 0.82 mg/dl Est Creatinine Clear Calc Drug Dose 83.1 ml/min Estimated GFR () 117.7 Estimated GFR (Non- 101.6 BUN/Creatinine Ratio 16.5 Random Glucose 98 mg/dl Calcium Level 8.8 mg/dl Total Bilirubin 0.3 mg/dl Direct Bilirubin < 0.1 mg/dl Aspartate Amino Transf (AST/SGOT) 15 U/L Alanine Aminotransferase (ALT/SGPT) 28 U/L Alkaline Phosphatase 148 U/L Total Protein 7.1 gm/dl Albumin 2.8 gm/dl Lipase 115 U/L Lactic Acid Level 0.9 mmol/L Test 12/25/16 05:10 White Blood Count 9.33 K/uL Red Blood Count 3.38 M/uL Hemoglobin 10.3 g/dL Hematocrit 30.6 % Mean Corpuscular Volume 90.5 fL Mean Corpuscular Hemoglobin 30.5 pg Mean Corpuscular Hemoglobin Concent 33.7 g/dl Platelet Count 174 K/uL Mean Platelet Volume 9.2 fL Neutrophils (%) (Auto) 64.7 % Lymphocytes (%) (Auto) 22.4 % Monocytes (%) (Auto) 11.8 % Eosinophils (%) (Auto) 0.4 % Basophils (%) (Auto) 0.3 % Neutrophils # (Auto) 6.03 K/uL Lymphocytes # (Auto) 2.09 K/uL Monocytes # (Auto) 1.10 K/uL Eosinophils # (Auto) 0.04 K/uL Basophils # (Auto) 0.03 K/uL RDW Standard Deviation 44.1 fL RDW Coefficient of Variation 13.4 % Immature Granulocyte % (Auto) 0.4 % Immature Granulocyte # (Auto) 0.04 K/uL Assessment and Plan Problem List Medical Problems: (1) Left flank pain Status: Acute (2) Near syncope Status: Acute (3) with hydronephrosis in third trimester Status: Acute (4) Right flank pain Status: Acute Post-Op Day#: 8 Continue Routine Care: endometritis, on iv abx. only given one dose so far. will monitor temp curve and uterine pain for clinical improvement. has nephrostomy tube and had CT for urology purposes last evening. likely can have tube removed by urology as outpatient after their review of study.
[2016-12-25] MEDS: IBUPROFEN 600 MG TAB PO PRN (19:39)
[2016-12-25] MEDS: GENTAMICIN INJ 280 MG in DEXTROSE 5% 100ML 100 ML IV SCH (21:56)
[2016-12-25] MEDS ORDERED: NURSING VERBAL MED ORDER ONE ×2 (22:45)
[2016-12-25] MEDS ORDERED: DiphenhydrAMINE HCL 50 MG/ML VIAL IV STA (22:47)
[2016-12-26] VITALS (11 sets, daily range): BP systolic 109–128; BP diastolic 63–74; PULSE 52–68; TEMP 36.8–39.3; O2SAT 97–99
[2016-12-26] MEDS: OXYCODONE/ACETAMINOPHEN 5-325 TAB PO PRN ×4 (00:01→19:52)
[2016-12-26] MEDS: CLINDAMYCIN IV 900 MG in DEXTROSE 5% 100ML 100 ML IV SCH ×3 (04:11→19:51)
[2016-12-26] MEDS: LACTATED RINGER'S 1000ML 1,000 ML IV SCH ×2 (06:18→23:39)
[2016-12-26] MEDS: IBUPROFEN 600 MG TAB PO PRN (06:19)
[2016-12-26 06:47] LABS: CREATININE 0.7 mg/dl (0.60-1.20)
--- NOTE | 2016-12-26 07:28 | Progress Note ---
Progress Note Date of Service Dec 26, 2016. Progress Note Patient admitted Sunday evening with suspected Endometritis. Placed on broad spectrum antibiotics. Initially improved, then had a reaction to Gentamicin last night and had to stop the gent because of this (pruritus). Patient feels pain in lower abdomen. No ext pain. Bleeding minimal. O/E: T=39.3. Chest clear CVS N S1, S2, regular Abdomen tender in lower aspect. Incision clean. Ext neg. A+P: Call pharmacy for Gram negative options considering drug reactions. States her RXN to [facility] was bridget. LEOBARDO
[2016-12-26] MEDS ORDERED: CEFEPIME CONSULT ACTIVE PRN ×2 (07:45)
[2016-12-26] MEDS: CEFEPIME IV 2,000 MG in DEXTROSE 5% 100ML 100 ML IV SCH ×2 (07:54→21:12)
--- NOTE | 2016-12-26 10:13 | Progress Note ---
Progress Note Date of Service Dec 26, 2016. Progress Note Patient resting comfortably in bed. Her urine culture has grown out enterococcus. Blood cultures are negative. She developed allergy to gent during hospitalization and with discussion with the pharmacy, antibiotics changed to clinda and cefipime. She spiked to 39 when on clinda alone. However , pharmacy notes that her current antibiotic regimen will not cover enterococcus very well. They suggest changing all antibiotics and recommend cefipime, flagyl and vancomycin. I have consulted ID to help us determine best antibiotic coverage given her allergies and her medical issues. Dr. Carrera notified. Her temp has come down since 6am. She continues to be quite tender to palpation of the uterus. She has no CVAT. Nephrostomy tube still in situ.
--- NOTE | 2016-12-26 10:48 | Progress Note ---
Progress Note Date of Service Dec 26, 2016. Progress Note I spoke with Dr. Killian regarding this patient. She was aware of her hospitalization. I asked him to review the CT scan. He notes that it appears her obstructing stone has passed. He feels the reading of the CT scan is more consistent with inflammation of the nephrostomy tube vs an actual pyelonephritis. He feels no intervention needed at this time other than antibiotics to cover her enterococcus. He notes she has an appt in the office already next week for nephrostomy tube removal. He suggests that if she does well, we can consider capping her tube as a trial for home. Will officially consult him if something else changes in her situation.
--- NOTE | 2016-12-26 11:25 | Medical Consult ---
Consultation Date of Consultation: Dec 26, 2016. Attending Physician: Kayleigh García M.D.(APPLICATION SUPPORT MANAGER/OB) Reason for Consultation: Endometritis, Enterococcus in urine History of Present Illness 21-year-old female proximally 1 week status post section presented to the hospital with 3 days of fever, chills, abdominal pain, and some pain around her incision. Of note is she has indwelling nephrostomy tube for nephrolithiasis. She was started empirically on IV gentamicin and clindamycin for diagnosis of endometritis, but developed severe pruritus with gentamicin and this was discontinued. Cefepime has been added. She has tolerated this thus far. She has continued to have intermittent fevers, and urine culture now growing Enterococcus. Blood cultures have been negative. Patient has significant penicillin allergies. Past Medical/Surgical History Medical Problems: (1) Left flank pain Status: Acute (2) Near syncope Status: Acute (3) with hydronephrosis in third trimester Status: Acute (4) Right flank pain Status: Acute Medical Problems: (1) 26 weeks gestation of (2) Back pain complicating in second trimester (3) Cramping affecting , antepartum (4) Hx MRSA infection (5) Normal labor (6) Ovarian cyst, left (7) Placenta previa marginalis (8) endometritis (9) with 37 weeks completed gestation (10) Uterine contractions (11) Vaginal bleeding during , antepartum Surgical Problems: (1) Previous delivery affecting (2) S/P appendectomy (3) S/P cholecystectomy Family History Cancer Diabetes mellitus Gallbladder disease Heart disease Hypertension Kidney disease Kidney stones Seizures Social History Smoking Status: Former Smoker Drug Use: none Marital Status: in relationship Housing Status: lives with significant other Occupation Status: unemployed Allergies Coded Allergies: Gentamicin (Verified Allergy, Intermediate, ITCHING ON 2ND DOSE FROM ADMISSION 12/25/16, 12/26/16) Ketorolac Tromethamine (Verified Allergy, Unknown, unknown, 12/24/16) Penicillins (Verified Allergy, Unknown, HIVES, 12/26/16) Promethazine (Verified Allergy, Unknown, unknown, 12/24/16) Morphine (Verified Adverse Reaction, Intermediate, TACHYCARDIA/RASH?, 12/24) Current Inpatient Medications Current Inpatient Medications Medications (Trade) Dose Ordered Sig/Sandrita Route Start Time Stop Time Status Last Admin Dose Admin Lactated Ringer's 1,000 ml @ 125 mls/hr Q8H IV 12/24/16 18:16 01/23/17 18:15 12/26/16 06:18 125 MLS/HR Clindamycin Phosphate 900 mg/ Dextrose 106 ml @ 100 mls/hr Q8H IV 12/25/16 04:00 01/04/17 03:59 12/26/16 04:11 100 MLS/HR Oxycodone/ Acetaminophen (Percocet 5-325mg Tab) 1 tab Q4H PRN PO 12/24/16 18:30 01/07/17 18:29 Oxycodone/ Acetaminophen (Percocet 5-325mg Tab) 2 tab Q4H PRN PO 12/24/16 18:30 01/07/17 18:29 12/26/16 07:57 2 TAB Acetaminophen (Tylenol Tab) 650 mg Q4H PRN PO 12/24/16 18:30 01/23/17 18:29 Ibuprofen (Motrin Tab) 600 mg Q6 PRN PO 12/24/16 18:30 01/23/17 18:29 12/26/16 06:19 600 MG Ioversol (Optiray 320) 116 ml UD PRN IV 12/24/16 20:00 12/28/16 19:59 Cefepime HCl 2000 mg/Dextrose 112.5 ml @ 200 mls/hr Q12@0800,2000 IV 12/26/16 08:00 01/05/17 07:59 12/26/16 07:54 200 MLS/HR Cefepime HCl (Consult) 1 ea UD PRN N/A 12/26/16 07:45 01/25/17 07:44 Review of Systems All systems were reviewed and are negative except as per HPI Physical Exam Date Time Temp Pulse Resp B/P (MAP) Pulse Ox O2 Delivery O2 Flow Rate FiO2 12/26/16 08:40 37.2 12/26/16 07:30 38.3 61 18 116/66 (83) 97 Room Air 12/26/16 07:30 97 Room Air 12/26/16 06:12 39.3 12/26/16 04:15 37.1 68 16 113/65 (81) 98 Room Air 12/26/16 00:00 36.9 52 18 115/69 (84) 97 Room Air 12/26/16 00:00 97 Room Air 12/25/16 22:30 36.8 55 16 120/64 (82) 98 Room Air 12/25/16 20:45 37.5 12/25/16 19:35 38.5 70 16 127/62 (83) 97 Room Air 12/25/16 17:15 98 Room Air 12/25/16 17:15 38.8 76 18 134/60 (84) 98 Room Air 12/25/16 12:00 37.5 75 18 112/70 (84) 98 Room Air General Appearance: WD/WN, no apparent distress Head: normocephalic, atraumatic Eyes: normal inspection, EOMI, sclerae normal ENT: normal ENT inspection, pharynx normal Neck: supple, no adenopathy, thyroid normal, trachea midline Respiratory/Chest: chest non-tender, lungs clear, normal breath sounds, no respiratory distress Cardiovascular: regular rate, rhythm, no gallop, no murmur Abdomen/GI: normal bowel sounds, soft, no organomegaly, + tenderness (Mild lower quadrant), + pertinent finding (Nephrostomy tube in place, site appears clean) Back: normal inspection, no CVA tenderness Extremities/Musculoskelatal: no calf tenderness, non-tender Neurologic/Psych: alert, oriented x 3 Skin: normal color, warm/dry, no rash Lymphatic: no adenopathy Laboratory Results RUN DATE: 12/26/16 [facility] LAB PAGE 1 RUN TIME: 1108 Specimen Inquiry PATIENT: IBRAHIMA BORJAS LOC: [facility] U # : [id number] AGE/SX: 21/F ROOM: [facility] REG : 12/25/[address]: Kayleigh García M.D.(G : 1995 BED: 2 DIS : STATUS: ADM IN TLOC: SPEC #: [id number] JULIETTE: 12/24/16 STATUS: RES REQ #: [id number] RECD: 12/24/[address]: Kayleigh García M.D.(APPLICATION SUPPORT MANAGER/OB) SOURCE: URINE CATH ENTR: 12/24/[address]: Ene Kimble, [facility]: CULTURE UR CATH COMMENTS: Has Specimen Been Obtained/Collected? Y Procedure Result Verified Site URINE CULTURE Preliminary 12/26/16 Organism 1 ENTEROCOCCUS SPECIES COLONY COUNT >100,000 CFU/ml SENS SENSITIVITY TO FOLLOW Last 24 Hours Test 12/26/16 06:07 Creatinine 0.70 mg/dl Est Creatinine Clear Calc Drug Dose 95.1 ml/min Estimated GFR () 142.5 Estimated GFR (Non- 123.0 ABD/PELVIS IV AND ORAL CONT HISTORY: 21 years-old Female ABDOMINAL PAIN/GI acute generalized abdominal pain with recent . Acute fever. COMPARISON: Pelvic ultrasound 12/24/2016, renal ultrasound 11/19/2016 TECHNIQUE: Multiple axial CT images of the abdomen and pelvis were obtained following the intravenous administration of 116 mL Optiray 320. Oral contrast also utilized. A dose lowering technique was used consistent with the principals of CHAD. FINDINGS: Lung bases are generally clear. No pneumoperitoneum identified. Imaged inferior cardiac chambers are unremarkable. 3 mm low attenuating circumscribed lesion of the anterior right hepatic lobe is too small to characterize or suggests cyst. No intrahepatic biliary ductal dilation. Prior cholecystectomy. Spleen, pancreas and adrenal glands are within normal limits. There is a focal wedge-shaped area of decreased attenuation involving the superior pole left kidney, 2.2 x 1.3 cm with additional scattered areas of heterogeneous attenuation noted involving the interpolar and inferior pole left kidney as seen on several images. Percutaneous left-sided nephrostomy catheter is noted with distal tip terminating in the region of the left UPJ. There is mild dilation of the central and peripheral calyces on the left. Scattered nonobstructing renal calculi are present on the right measuring up to 3 mm. There is mild prominence of the right renal collecting system and right ureter without obstructing stone or calculus identified. Urinary bladder is unremarkable. Uterus appears enlarged and heterogeneous with trace fluid seen within the endocervical canal. No significant free pelvic fluid. The abdominal aorta is normal in course and caliber. No bulky retroperitoneal adenopathy. Mildly prominent left periaortic lymph node at the level of the left kidney, 1.2 x 1.1 cm is likely reactive. There is no focal bowel wall thickening or bowel obstruction. The appendix appears normal. Post surgical changes are seen along the anterior abdominal wall. The postsurgical collection identified. Mildly prominent nonspecific inguinal lymph nodes are seen. Bones are intact. There is mild fragmentation of the pubic symphysis suspicious for osteitis pubis. IMPRESSION: 1. Left-sided percutaneous nephrostomy catheter in place with multifocal wedge-shaped areas of decreased attenuation of the left kidney as above suggesting multifocal pyelonephritis. 2. Multiple right-sided nonobstructing renal calculi. Mild prominence of the bilateral renal collecting systems without obstructing stone or mass identified may be residual post-gravid changes. 3. Post-gravid enlarged and heterogeneous appearance of the uterus, better evaluated on comparison ultrasound of same day. 4. Prior cholecystectomy. 5. Normal appendix. The above report was generated using voice recognition software. It may contain grammatical, syntax or spelling errors. Electronically signed by: Walter Rao M.D. 12/24/2016 8:37 PM Dictated Date/Time: 12/24/2016 8:27 PM The status of this report is Signed. Draft = Not yet reviewed or approved by Radiologist. Signed = Reviewed and approved by Radiologist. <AttendingPhy>Kayleigh García M.D.(APPLICATION SUPPORT MANAGER/OB)</AttendingPhy> <FamilyPhy>No Doctor , Assigned</FamilyPhy> <PrimaryPhy>No Doctor, Assigned</PrimaryPhy> <UnitNumber> [id number]</UnitNumber> <VisitNumber>[id number]</VisitNumber> <PatientName> IBRAHIMA BORJAS</PatientName> <DateOfBirth>1995</DateOfBirth> <Location> [facility]</Location> <ServiceDate>12/24/16</ServiceDate> <MNE>ESINDI</MNE> < OrderingPhy>Roderick Peter PA-C</OrderingPhy> <OrderingPhyMNE>f rep ord dr parada< /OrderingPhyMNE> <DictatingPhyMNE>f rep dict dr parada</DictatingPhyMNE> <CCListMNE >f rep Assessment & Plan 21 yo female with post endometritis as well as likely pyelonephritis with Enterococcus in setting of indwelling nephrostomy tube. Will start patient on IV vancomycin given multiple allergies, and continue clindamycin and cefepime. May take several days for fever to resolve with pyelonephritis. Will follow.
[2016-12-26] MEDS ORDERED: VANCOMYCIN CONSULT ACTIVE PRN (11:45)
[2016-12-26] MEDS ORDERED: VANCOMYCIN INJ 1,500 MG in SODIUM CHLORIDE 0.9% 500ML 500 ML IV SCH (12:00)
--- NOTE | 2016-12-26 13:56 | Pharmacy Progress Note ---
Pharmacy Abx Initial Consult Date of Service Dec 26, 2016. Pharmacy Dosing Scope Date of Consult: 12/26/16 Consultation requested by: Dr. Carrera Pharmacy is consulted to initiate Vancomycin IV dosing therapy, order appropriate labs and adjust drug dose/frequency. Subjective The patient is a 21 year old female admitted on Dec 25, 2016 at 09:04. Objective Height (Feet): 5 Height (Inches): 1.00 Weight (Kilograms): 56.300 Vital Signs (Past 12Hrs) Vital Signs Past 12 Hours Date Time Temp Pulse Resp B/P (MAP) Pulse Ox O2 Delivery O2 Flow Rate FiO2 12/26/16 11:30 36.8 60 20 109/63 (78) 99 Room Air 12/26/16 08:40 37.2 12/26/16 07:30 38.3 61 18 116/66 (83) 97 Room Air 12/26/16 07:30 97 Room Air 12/26/16 06:12 39.3 12/26/16 04:15 37.1 68 16 113/65 (81) 98 Room Air Lab Results (24Hrs) Item Value Date Time Creatinine 0.70 mg/dl 12/26/16 0607 Est Creatinine Clear Calc Drug Dose 95.1 ml/min 12/26/16 0607 Estimated GFR () 142.5 12/26/16 0607 Estimated GFR (Non- 123.0 12/26/16 0607 Item Value Date Time Red Blood Count 3.38 M/uL L 12/25/16 0510 White Blood Count 9.33 K/uL 12/25/16 0510 RDW Standard Deviation 44.1 fL 12/25/16 0510 Hemoglobin 10.3 g/dL L 12/25/16 0510 Hematocrit 30.6 % L 12/25/16 0510 Mean Corpuscular Volume 90.5 fL 12/25/16 0510 Mean Corpuscular Hemoglobin 30.5 pg 12/25/16 0510 Mean Corpuscular Hemoglobin Concent 33.7 g/dl 12/25/16 0510 RDW Coefficient of Variation 13.4 % 12/25/16 0510 Platelet Count 174 K/uL 12/25/16 0510 Mean Platelet Volume 9.2 fL 12/25/16 0510 Immature Granulocyte % (Auto) 0.4 % 12/25/16 0510 Neutrophils (%) (Auto) 64.7 % 12/25/16 0510 Lymphocytes (%) (Auto) 22.4 % 12/25/16 0510 Monocytes (%) (Auto) 11.8 % 12/25/16 0510 Eosinophils (%) (Auto) 0.4 % 12/25/16 0510 Basophils (%) (Auto) 0.3 % 12/25/16 0510 Immature Granulocyte # (Auto) 0.04 K/uL H 12/25/16 0510 Neutrophils # (Auto) 6.03 K/uL 12/25/16 0510 Lymphocytes # (Auto) 2.09 K/uL 12/25/16 0510 Monocytes # (Auto) 1.10 K/uL H 12/25/16 0510 Eosinophils # (Auto) 0.04 K/uL 12/25/16 0510 Basophils # (Auto) 0.03 K/uL 12/25/16 0510 Micro Results Date/Time Source Procedure Growth Status 12/24/16 16:03 Blood Blood Culture - Preliminary NO GROWTH TO DATE. Resulted 12/24/16 16:01 Blood Blood Culture - Preliminary NO GROWTH TO DATE. Resulted 12/24/16 20:30 Urine,Catheterized Urine Culture - Preliminary Enterococcus Species Resulted Risk Factors for Resistance * Hospitalization for 48 hours or more within the past 90 days Assessment & Plan Assessment 21 year old female presenting with 1 week endometritis. Patient with continued temp of 39.3 this am and positive urine culture for enterococcus with sensitivity to follow. Patient also has a nephrostomy tube secondary to renal stone during . Nephrostomy tube is in place with plan to remove next week. Patient had received gentamicin 280mg IV x 1 dose. Patient had reported itching with drug and therapy was discontinued. ID consult obtained and therapy of clindamycin, cefepime and vancomycin to continue for endometritis, possible pyelonephritis with indwelling nephrostomy tube. Plan Vanvomycin for treatment of endometritis and possible pyelonephritis. Positive urine culture for enterococcus. Vancomycin IV * Loading dose: 1500 mg (25 mg/kg) * Maintenance dose: 1000 mg IV (18 mg/kg) every 12 hours * Goal trough level for complicated UTI : 15 to 20 mcg/mL * Trough/Random level ordered for 12/28/2016 @11:30 Pharmacy will continue to follow and will adjust dose/frequency as necessary. Thank you.
[2016-12-26] MEDS: VANCOMYCIN INJ 1,000 MG in SODIUM CHLORIDE 0.9% 250ML 250 ML IV SCH (23:39)
[2016-12-27] VITALS (7 sets, daily range): BP systolic 107–129; BP diastolic 66–76; PULSE 51–57; TEMP 36.7–37.7; O2SAT 97–98
[2016-12-27] MEDS: CLINDAMYCIN IV 900 MG in DEXTROSE 5% 100ML 100 ML IV SCH ×3 (03:40→19:53)
[2016-12-27] MEDS: OXYCODONE/ACETAMINOPHEN 5-325 TAB PO PRN ×3 (05:31→21:48)
[2016-12-27 06:19] LABS: BASO % 0.3 %; BASO ABS # 0.02 K/uL (0-0.2); COMPLETE YES; EOS % 2.9 %; HEMATOCRIT 29.8 % (37-47); IG% 0.2 %; LYMPH % 31.2 %; LYMPH ABS # 1.82 K/uL (1.2-3.4); MEAN CELL VOLUME 88.4 fL (80-100); MEAN CORPUSCULAR HEMOGLOBIN 29.4 pg (25-34); MEAN CORPUSCULAR HGB CONC 33.2 g/dl (32-36); MEAN PLATELET VOLUME 9.6 fL (7.4-10.4); MONO % 10.6 %; NEUT % 54.8 %; PLATELET COUNT 226 K/uL (130-400); RED BLOOD COUNT 3.37 M/uL (4.2-5.4); WHITE BLOOD COUNT 5.84 K/uL (4.8-10.8)
--- NOTE | 2016-12-27 07:15 | Progress Note ---
Subjective Dec 27, 2016. Subjective conversation w/ patient, conversation w/ family, lab review Ambulation: ambulating normally Voiding: no voiding problems, no incontinence Diet Tolerance: Regular Diet Feeding Type: Breast Feeding Pain: controlled with oral pain meds Comment: Patient notes she is feeling a bit better today. Had no issues with the vanc. Notes she has some mild nausea. Voiding well. Notes has abdominal pain that is responsive to oral pain meds. Notes no back pain. Review of Systems Constitutional: + fever, + sweats Respiratory: No cough, No shortness of breath Cardiac: No chest pain, No edema Breast: No problem reported Abdomen: + pain, + nausea, No vomiting, No diarrhea, No constipation Female : No dysuria, No urinary frequency, No incontinence, No abnormal vaginal bleeding Objective Vital Signs Date Time Temp Pulse Resp B/P (MAP) Pulse Ox O2 Delivery O2 Flow Rate FiO2 12/27/16 03:40 37.7 53 18 129/76 (93) Room Air 12/26/16 23:35 36.9 58 16 128/73 (91) 97 Room Air 12/26/16 19:45 38.9 67 18 126/74 (91) 97 Room Air 12/26/16 17:50 37.3 12/26/16 17:30 37.3 12/26/16 15:30 36.8 54 18 119/69 (86) 97 Room Air 12/26/16 15:30 97 Room Air 12/26/16 11:30 36.8 60 20 109/63 (78) 99 Room Air 12/26/16 08:40 37.2 12/26/16 07:30 38.3 61 18 116/66 (83) 97 Room Air 12/26/16 07:30 97 Room Air Physical Exam General Appearance: WELL-APPEARING, WD/WN, NO APPARENT DISTRESS Respiratory/Chest: lungs clear, normal breath sounds Cardiovascular: regular rate, rhythm Abdomen: normal bowel sounds, soft Fundus: Firm, Tender (continues to have tenderness to even mild palpation below the umbilicus and with direct palpation of the uterus which is about 16 weeks size.) Extremities: non-tender, normal inspection, no pedal edema Laboratory Results Last 24 Hours Test 12/27/16 06:02 White Blood Count 5.84 K/uL Red Blood Count 3.37 M/uL Hemoglobin 9.9 g/dL Hematocrit 29.8 % Mean Corpuscular Volume 88.4 fL Mean Corpuscular Hemoglobin 29.4 pg Mean Corpuscular Hemoglobin Concent 33.2 g/dl Platelet Count 226 K/uL Mean Platelet Volume 9.6 fL Neutrophils (%) (Auto) 54.8 % Lymphocytes (%) (Auto) 31.2 % Monocytes (%) (Auto) 10.6 % Eosinophils (%) (Auto) 2.9 % Basophils (%) (Auto) 0.3 % Neutrophils # (Auto) 3.20 K/uL Lymphocytes # (Auto) 1.82 K/uL Monocytes # (Auto) 0.62 K/uL Eosinophils # (Auto) 0.17 K/uL Basophils # (Auto) 0.02 K/uL RDW Standard Deviation 42.4 fL RDW Coefficient of Variation 13.0 % Immature Granulocyte % (Auto) 0.2 % Immature Granulocyte # (Auto) 0.01 K/uL Assessment and Plan Problem List Medical Problems: (1) Left flank pain Status: Acute (2) Near syncope Status: Acute (3) with hydronephrosis in third trimester Status: Acute (4) Right flank pain Status: Acute Post-Op Day#: 10 Continue Routine Care: Patient is pod #10 for c/s with endometritis. Her wbc, which was never elevated , is decreased today. Patient did spike at 7pm last night. Had only had one dose of vanc by that point. May just not be adequately treated at this time. will continue to watch closely. Appreciate the input of ID. Continues on vanc , cefipime and clinda. Will need to be afebrile for at least 24 hrs on iv antibiotics before changing over to orals. Will need to consider what orals we will choose.
[2016-12-27] MEDS: CEFEPIME IV 2,000 MG in DEXTROSE 5% 100ML 100 ML IV SCH ×2 (08:05→21:01)
--- NOTE | 2016-12-27 10:24 | Infectious Disease Progress Nt ---
Progress Note Date of Service Dec 27, 2016. Subjective Pt evaluation today including: conversation w/ patient, physical exam, chart review, lab review, review of studies, conversation w/ brand sales consultant, review of inpatient medication list Patient feeling somewhat better this morning. Temperature is down. Tolerating vancomycin without apparent difficulty. No new complaints. All Other Systems: Reviewed and Negative Medications Current Inpatient Medications Medications (Trade) Dose Ordered Sig/Sandrita Route Start Time Stop Time Status Last Admin Dose Admin Lactated Ringer's 1,000 ml @ 125 mls/hr Q8H IV 12/24/16 18:16 01/23/17 18:15 12/26/16 23:39 125 MLS/HR Clindamycin Phosphate 900 mg/ Dextrose 106 ml @ 100 mls/hr Q8H IV 12/25/16 04:00 01/04/17 03:59 12/27/16 03:40 100 MLS/HR Oxycodone/ Acetaminophen (Percocet 5-325mg Tab) 1 tab Q4H PRN PO 12/24/16 18:30 01/07/17 18:29 Oxycodone/ Acetaminophen (Percocet 5-325mg Tab) 2 tab Q4H PRN PO 12/24/16 18:30 01/07/17 18:29 12/27/16 05:31 2 TAB Acetaminophen (Tylenol Tab) 650 mg Q4H PRN PO 12/24/16 18:30 01/23/17 18:29 Ibuprofen (Motrin Tab) 600 mg Q6 PRN PO 12/24/16 18:30 01/23/17 18:29 12/26/16 06:19 600 MG Ioversol (Optiray 320) 116 ml UD PRN IV 12/24/16 20:00 12/28/16 19:59 Cefepime HCl 2000 mg/Dextrose 112.5 ml @ 200 mls/hr Q12@0800,2000 IV 12/26/16 08:00 01/05/17 07:59 12/27/16 08:05 200 MLS/HR Cefepime HCl (Consult) 1 ea UD PRN N/A 12/26/16 07:45 01/25/17 07:44 Vancomycin HCl 1000 mg/Sodium Chloride 270 ml @ 125 mls/hr Q12H IV 12/27/16 00:00 01/05/17 11:59 12/26/16 23:39 125 MLS/HR Vancomycin HCl (Consult) 1 ea UD PRN N/A 12/26/16 11:45 01/05/17 11:44 Diphenhydramine HCl (Benadryl Cap) 25 mg Q12@0000,1200 PO 12/27/16 00:00 01/26/17 00:00 12/26/16 23:39 25 MG Objective Vital Signs Date Time Temp Pulse Resp B/P (MAP) Pulse Ox O2 Delivery O2 Flow Rate FiO2 12/27/16 08:45 37.6 12/27/16 08:00 37.0 51 16 122/73 (89) 97 Room Air 12/27/16 08:00 97 Room Air 12/27/16 03:40 37.7 53 18 129/76 (93) Room Air 12/26/16 23:35 36.9 58 16 128/73 (91) 97 Room Air 12/26/16 19:45 38.9 67 18 126/74 (91) 97 Room Air 12/26/16 17:50 37.3 12/26/16 17:30 37.3 12/26/16 15:30 36.8 54 18 119/69 (86) 97 Room Air 12/26/16 15:30 97 Room Air 12/26/16 11:30 36.8 60 20 109/63 (78) 99 Room Air Physical Exam General Appearance: WD/WN, no apparent distress Eyes: normal inspection, EOMI, sclerae normal ENT: normal ENT inspection, pharynx normal Neck: supple, no adenopathy, trachea midline Respiratory/Chest: lungs clear, normal breath sounds, no respiratory distress Cardiovascular: regular rate, rhythm, no gallop, no murmur Abdomen: normal bowel sounds, non tender, soft, no organomegaly Extremities: non-tender, no calf tenderness Neurologic/Psychiatric: alert, oriented x 3 Skin: normal color, warm/dry, no rash Lymphatic: no adenopathy Laboratory Results Last 24 Hours Test 12/27/16 06:02 White Blood Count 5.84 K/uL Red Blood Count 3.37 M/uL Hemoglobin 9.9 g/dL Hematocrit 29.8 % Mean Corpuscular Volume 88.4 fL Mean Corpuscular Hemoglobin 29.4 pg Mean Corpuscular Hemoglobin Concent 33.2 g/dl Platelet Count 226 K/uL Mean Platelet Volume 9.6 fL Neutrophils (%) (Auto) 54.8 % Lymphocytes (%) (Auto) 31.2 % Monocytes (%) (Auto) 10.6 % Eosinophils (%) (Auto) 2.9 % Basophils (%) (Auto) 0.3 % Neutrophils # (Auto) 3.20 K/uL Lymphocytes # (Auto) 1.82 K/uL Monocytes # (Auto) 0.62 K/uL Eosinophils # (Auto) 0.17 K/uL Basophils # (Auto) 0.02 K/uL RDW Standard Deviation 42.4 fL RDW Coefficient of Variation 13.0 % Immature Granulocyte % (Auto) 0.2 % Immature Granulocyte # (Auto) 0.01 K/uL Assessment and Plan 21 yo female with post endometritis as well as likely pyelonephritis with Enterococcus in setting of indwelling nephrostomy tube. Patient appears to be improving with addition of vancomycin. Will likely need to go home on course of IV vancomycin given multiple drug allergies and positive culture for Enterococcus, she is breast-feeding and many antibiotics contraindicated. We will continue to follow.
[2016-12-27] MEDS: VANCOMYCIN INJ 1,000 MG in SODIUM CHLORIDE 0.9% 250ML 250 ML IV SCH (12:37)
[2016-12-27] MEDS: LACTATED RINGER'S 1000ML 1,000 ML IV SCH (14:06)
[2016-12-28] MEDS: VANCOMYCIN INJ 1,000 MG in SODIUM CHLORIDE 0.9% 250ML 250 ML IV SCH ×2 (00:12→14:12)
[2016-12-28] MEDS: OXYCODONE/ACETAMINOPHEN 5-325 TAB PO PRN ×4 (02:58→16:10)
[2016-12-28] MEDS: LACTATED RINGER'S 1000ML 1,000 ML IV SCH ×2 (03:00→13:34)
[2016-12-28 03:30] VITALS: BP 128/87; PULSE 55; TEMP 36.7; O2SAT 99
[2016-12-28] MEDS: CLINDAMYCIN IV 900 MG in DEXTROSE 5% 100ML 100 ML IV SCH ×2 (03:56→11:51)
[2016-12-28 05:20] VITALS: BP 124/82; PULSE 56; TEMP 36.8; O2SAT 97
[2016-12-28 06:27] LABS: BASO % 0.3 %; BASO ABS # 0.02 K/uL (0-0.2); COMPLETE YES; HEMATOCRIT 30.1 % (37-47); IG% 0.2 %; LYMPH % 48.7 %; MEAN CELL VOLUME 89.3 fL (80-100); MEAN CORPUSCULAR HEMOGLOBIN 30.3 pg (25-34); MEAN CORPUSCULAR HGB CONC 33.9 g/dl (32-36); MEAN PLATELET VOLUME 9.5 fL (7.4-10.4); MONO % 6.6 %; NEUT % 40.2 %; PLATELET COUNT 232 K/uL (130-400); RED BLOOD COUNT 3.37 M/uL (4.2-5.4); WHITE BLOOD COUNT 5.75 K/uL (4.8-10.8)
--- NOTE | 2016-12-28 06:30 | Progress Note ---
Subjective Dec 28, 2016. Subjective conversation w/ patient, physical exam Ambulation: ambulating normally Voiding: no voiding problems, no incontinence Diet Tolerance: Regular Diet Objective Vital Signs Date Time Temp Pulse Resp B/P (MAP) Pulse Ox O2 Delivery O2 Flow Rate FiO2 12/28/16 05:20 36.8 56 18 124/82 (96) 97 Room Air 12/28/16 03:30 36.7 55 18 128/87 (101) 99 Room Air 12/27/16 23:45 98 Room Air 12/27/16 23:45 36.7 52 18 114/68 (83) 98 Room Air 12/27/16 19:55 36.8 52 16 117/69 (85) 98 Room Air 12/27/16 16:30 98 Room Air 12/27/16 16:30 37.0 57 16 124/72 (89) 98 Room Air 12/27/16 12:00 37.0 56 16 107/66 (80) Room Air 12/27/16 08:45 37.6 12/27/16 08:00 37.0 51 16 122/73 (89) 97 Room Air 12/27/16 08:00 97 Room Air Physical Exam General Appearance: WELL-APPEARING, NO APPARENT DISTRESS Respiratory/Chest: lungs clear Cardiovascular: regular rate, rhythm Abdomen: + tenderness (generalized tenderness) Extremities: no calf tenderness Laboratory Results Last 24 Hours Test 12/28/16 06:15 Assessment and Plan Problem List Medical Problems: (1) Left flank pain Status: Acute (2) Near syncope Status: Acute (3) with hydronephrosis in third trimester Status: Acute (4) Right flank pain Status: Acute Post-Op Day#: 11 Continue Routine Care: - afebrile x 36 hours - WBC pending from this AM - ID states pt will need to be on IV Vancomycin for 7 days - D/C planning to see the patient to arrange home antibiotics - pt was on home vanco before MRSA, familiar with process - has f/u with Urology scheduled for 01/03 as outpatient
[2016-12-28 06:52] LABS: CREATININE 0.66 mg/dl (0.60-1.20)
[2016-12-28 08:15] VITALS: BP 118/78; PULSE 68; TEMP 37.4; O2SAT 100
[2016-12-28] MEDS: CEFEPIME IV 2,000 MG in DEXTROSE 5% 100ML 100 ML IV SCH (08:38)
[2016-12-28] MEDS ORDERED: VANCOMYCIN TROUGH SCH (11:30)
[2016-12-28] MEDS ORDERED: OXYC-57 PO (12:08)
--- NOTE | 2016-12-28 12:12 | Discharge Instructions ---
Discharge Instructions Date of Service Dec 28, 2016. Admission Reason for Admission: Endometritis Discharge Discharge Diagnosis / Problem: same, urinary tract infection Discharge Goals Goal(s): Continuing GRAPHIC ILLUSTRATOR care Activity Recommendations Activity Limitations: resume your previous activity (per your original instructions. ) Shower/Bathe: no limitations . Instructions / Follow-Up Instructions / Follow-Up See urology as planned for removal of nephrostomy tube See OB on Sun or January 08 or . Call office to make appointment. [phone] Follow orders and followup per ID physician. I spoke to DR. APARICIO and you need labs that are ordered in [facility], Broker for sunday or early sunday morning. You may be able to go to the [facility] office laboratory(only sunday morning) or you can come to [facility] (any day morning). You will only need a total of 7 days of vancomycin and since you have had 2 days of dosing that would be 5 more days of dosing. Current Hospital Diet Patient's current hospital diet: Regular OB Diet Discharge Diet Recommended Diet: Regular Diet Pending Studies Studies pending at discharge: no Medical Emergencies . Who to Call and When: Medical Emergencies: If at any time you feel your situation is an emergency, please call 911 immediately. . Non-Emergent Contact Non-Emergency issues call your: [employer] . . "Provider Documentation" section prepared by Kayleigh García. . VTE Core Measure Inpt VTE Proph given/why not?: SCD's [place] Drug Monitoring Program Search Results: patient reviewed within database, no issues identified
--- NOTE | 2016-12-28 12:24 | Progress Note ---
Progress Note Date of Service Dec 28, 2016. Progress Note pt seen and examined earlier today. af x >36hrs. uterine tenderness diminished by my exam. incision c/d/i. pt without cvat. will plan d/c home. pt plans to go to her mom's. I spoke to Dr. Carrera earlier and he feels her treatment for endometritis is complete but that she will need 7 more days of vancomycin. Due to that we have consented pt for PICC line. We will await Dr. Carrera's orders for medication and lab and school social worker is aware and says patient ok to go home for iv therapy. Patient aware. We discussed pain management and on [place] PDMP she has had a few tablets of percocet, ie approx 50. She is aware this is an addictive medicine and that she will need to taper off in about 3days. During that process she should use extra strength tylenol in place of percocet and can use ibuprofen alternating. She verbalized understanding. I have given her an additional prescription due to her newest complication. She is given instructions and advised about followup. She has not been capping the nephrostomy tube and therefore is voiding and draining the bag. I reviewed Dr. Ceja's note about conversation with Dr. Killian. Seems like he said that could be done but did not have to be done. Also she is set up to have nephrostomy tube removed as she no longer has obstructing stone.
[2016-12-28 12:30] VITALS: BP 130/82; PULSE 69; TEMP 37.1; O2SAT 99
[2016-12-28] MEDS ORDERED: VANC1INJ94 IV ×2 (12:34→14:56)
--- NOTE | 2016-12-28 14:05 | Pharmacy Progress Note ---
Pharmacy Abx Dose Short Note Date of Service Dec 28, 2016. Assessment & Plan Assessment 21 year old female receiving vancomycin/cefepime/clindamycin for treatment of enodmetritis and enterococcus uti Day # 3/7 of antimicrobial therapy for uti Plan Vancomycin * Trough level of 11.7 mcg/mL is supratherapeutic- drawn ~1 hour early, predict lower "true" trough * Change to 1250 mg q12H * Spoke with Dr. Carrera in regards to q8H dosing- pt to be discharged- wanted to increase dose and keep q12H dosing * Goal trough level 15-20 mcg/mL * Patient to be discharged today and will complete 7 day course of vancomycin as outpatient Pharmacy will continue to follow and will adjust dose/frequency as necessary. Thank you.
--- NOTE | 2016-12-28 14:37 | Infectious Disease Progress Nt ---
Progress Note Date of Service Dec 28, 2016. Subjective Pt evaluation today including: conversation w/ patient, physical exam, chart review, lab review, review of studies, conversation w/ internet consultant, review of inpatient medication list Feels better. Remains afebrile. Tolerating vancomycin. All Other Systems: Reviewed and Negative Medications Current Inpatient Medications Medications (Trade) Dose Ordered Sig/Sandrita Route Start Time Stop Time Status Last Admin Dose Admin Lactated Ringer's 1,000 ml @ 125 mls/hr Q8H IV 12/24/16 18:16 01/23/17 18:15 12/28/16 13:34 125 MLS/HR Clindamycin Phosphate 900 mg/ Dextrose 106 ml @ 100 mls/hr Q8H IV 12/25/16 04:00 01/04/17 03:59 12/28/16 11:51 100 MLS/HR Oxycodone/ Acetaminophen (Percocet 5-325mg Tab) 1 tab Q4H PRN PO 12/24/16 18:30 01/07/17 18:29 Oxycodone/ Acetaminophen (Percocet 5-325mg Tab) 2 tab Q4H PRN PO 12/24/16 18:30 01/07/17 18:29 12/28/16 12:40 2 TAB Acetaminophen (Tylenol Tab) 650 mg Q4H PRN PO 12/24/16 18:30 01/23/17 18:29 Ibuprofen (Motrin Tab) 600 mg Q6 PRN PO 12/24/16 18:30 01/23/17 18:29 12/26/16 06:19 600 MG Ioversol (Optiray 320) 116 ml UD PRN IV 12/24/16 20:00 12/28/16 19:59 Cefepime HCl 2000 mg/Dextrose 112.5 ml @ 200 mls/hr Q12@0800,2000 IV 12/26/16 08:00 01/05/17 07:59 12/28/16 08:38 200 MLS/HR Cefepime HCl (Consult) 1 ea UD PRN N/A 12/26/16 07:45 01/25/17 07:44 Vancomycin HCl 1000 mg/Sodium Chloride 270 ml @ 125 mls/hr Q12H IV 12/27/16 00:00 12/28/16 16:00 12/28/16 14:12 125 MLS/HR Vancomycin HCl (Consult) 1 ea UD PRN N/A 12/26/16 11:45 01/05/17 11:44 Diphenhydramine HCl (Benadryl Cap) 25 mg Q12@0000,1200 PO 12/27/16 00:00 01/26/17 00:00 12/28/16 13:53 25 MG Vancomycin HCl 1250 mg/Sodium Chloride 275 ml @ 125 mls/hr Q12H IV 12/29/16 02:00 01/08/17 01:59 Objective Vital Signs Date Time Temp Pulse Resp B/P (MAP) Pulse Ox O2 Delivery O2 Flow Rate FiO2 12/28/16 12:30 37.1 69 16 130/82 (98) 99 Room Air 12/28/16 08:15 37.4 68 16 118/78 (91) 100 Room Air 12/28/16 08:15 Room Air 12/28/16 05:20 36.8 56 18 124/82 (96) 97 Room Air 12/28/16 03:30 36.7 55 18 128/87 (101) 99 Room Air 12/27/16 23:45 98 Room Air 12/27/16 23:45 36.7 52 18 114/68 (83) 98 Room Air 12/27/16 19:55 36.8 52 16 117/69 (85) 98 Room Air 12/27/16 16:30 98 Room Air 12/27/16 16:30 37.0 57 16 124/72 (89) 98 Room Air Physical Exam General Appearance: WD/WN, no apparent distress Eyes: normal inspection, funduscopic exam normal ENT: normal ENT inspection, pharynx normal Neck: supple, no adenopathy, trachea midline Respiratory/Chest: lungs clear, normal breath sounds, no respiratory distress Cardiovascular: regular rate, rhythm, no gallop, no murmur Abdomen: normal bowel sounds, non tender, soft, no organomegaly Extremities: non-tender, no calf tenderness Neurologic/Psychiatric: alert, oriented x 3 Skin: normal color, warm/dry, no rash Lymphatic: no adenopathy Laboratory Results Last 24 Hours Test 12/28/16 06:15 12/28/16 11:20 White Blood Count 5.75 K/uL Red Blood Count 3.37 M/uL Hemoglobin 10.2 g/dL Hematocrit 30.1 % Mean Corpuscular Volume 89.3 fL Mean Corpuscular Hemoglobin 30.3 pg Mean Corpuscular Hemoglobin Concent 33.9 g/dl Platelet Count 232 K/uL Mean Platelet Volume 9.5 fL Neutrophils (%) (Auto) 40.2 % Lymphocytes (%) (Auto) 48.7 % Monocytes (%) (Auto) 6.6 % Eosinophils (%) (Auto) 4.0 % Basophils (%) (Auto) 0.3 % Neutrophils # (Auto) 2.31 K/uL Lymphocytes # (Auto) 2.80 K/uL Monocytes # (Auto) 0.38 K/uL Eosinophils # (Auto) 0.23 K/uL Basophils # (Auto) 0.02 K/uL RDW Standard Deviation 42.4 fL RDW Coefficient of Variation 13.1 % Immature Granulocyte % (Auto) 0.2 % Immature Granulocyte # (Auto) 0.01 K/uL Creatinine 0.66 mg/dl Est Creatinine Clear Calc Drug Dose 100.8 ml/min Estimated GFR () 145.3 Estimated GFR (Non- 125.4 Vancomycin Level Trough 11.7 mcg/ml Assessment and Plan 21 yo female with post endometritis as well as likely pyelonephritis with Enterococcus in setting of indwelling nephrostomy tube. Patient appears to be improving with addition of vancomycin. Will need to go home on course of IV vancomycin given multiple drug allergies and positive culture for Enterococcus, she is breast-feeding and many antibiotics contraindicated. Recommend she complete 7 days of vancomycin. Discussed with Dr. García.
[2016-12-28 16:28] VITALS: BP 128/80; PULSE 69; TEMP 36.7; O2SAT 99
[2016-12-28] MEDS: IBUPROFEN 600 MG TAB PO PRN (17:47)
[2016-12-29] MEDS ORDERED: VANCOMYCIN INJ 1,250 MG in SODIUM CHLORIDE 0.9% 250ML 250 ML IV SCH (02:00)
--- NOTE | 2017-01-04 07:04 | DISCHARGE SUMMARY ---
ADMISSION DIAGNOSES: 1. endometritis. 2. Pyelonephritis. DISCHARGE DIAGNOSES: Same. HOSPITAL CONSULTATIONS: Infectious disease, Dr. Carrera. BRIEF HISTORY AND HOSPITAL COURSE: A 21-year-old 2, para 1-0-0-1 who presented to the Emergency Department on the evening prior to admission which was postop day #7 from a repeat low transverse section, who had complained of fever and shaking chills. She presented to the Emergency Room and upon her assessment was deemed to have a working diagnosis of endometritis. This was primarily due to abdominal tenderness on physical exam and elevated temperature. White count was normal. She has a known history of a left nephrostomy tube due to an obstructing kidney stone, that was placed during her . She underwent a CT scan that evening which showed that she no longer had an obstructing kidney stone and had a plan via urology to remove the nephrostomy tube on an outpatient basis. She was admitted as mentioned and was treated with IV gentamicin and clindamycin. During the course of her hospital stay, she did continue to have temperature elevation. In addition, her workup had included blood cultures that were negative x2 but also a urine culture that did grow Enterococcus. She had multiple drug allergies and infectious disease was consulted to help to manage her IV antibiotics. That initial consultation with Dr. Carrera was on 12/26/2016. At that time, she had already developed pruritus from gentamicin and that was discontinued, and therefore, cefepime was added. Due to the urine culture findings, IV vancomycin was already begun. The patient defervesced and remained afebrile for greater than 24 hours such that on hospital day #5 she was considered stable for discharge to home. In addition, her white count had been followed and never elevated. She also had improvement of her abdominal tenderness. Infectious disease was consulted on the day of her discharge and did feel that a total of 7 days of IV vancomycin was necessary for complete treatment of Enterococcus in her urine. Because of her multiple allergies, a PICC line was placed and the IV vancomycin was ordered and arranged on an outpatient basis. She was given a small amount of pain medication upon her discharge and did already have a plan to follow up with urology within a week. She also had a plan to follow up in our office. Due to drug level testing being performed via pharmacy, her discharge dose of vancomycin was 1250 mg IV q. 12 hours. This was for an additional 5 days of dosing. She was given appropriate discharge instructions as well. FANTASMA
== END 2016-12-28 18:52 | disposition home health service (06) | DRG 776 ==
LOC: C.EDB 14:47 → C.MS4N 18:19 → ENRESERV 18:27 → OBSVTOIN 12-25 09:04
PROVIDERS: ADMIT Obstetrics & Gynecology; ATTEND Obstetrics & Gynecology
PROC: 05HA33Z Insertion of Infusion Device into Left Brachial Vein, Percutaneous Approach (ICD-10-PCS; principal; 2016-12-28)
DX: O86.12 Endometritis following delivery (principal); N12 Tubulo-interstitial nephritis, not specified as acute or chronic; O99.53 Diseases of the respiratory system complicating the puerperium; Z86.59 Personal history of other mental and behavioral disorders; O99.73 Diseases of the skin and subcutaneous tissue complicating the puerperium; O9A.23 Injury, poisoning and certain other consequences of external causes complicating the puerperium; J45.909 Unspecified asthma, uncomplicated; Z86.14 Personal history of Methicillin resistant Staphylococcus aureus infection; L29.9 Pruritus, unspecified; T36.5X5A Adverse effect of aminoglycosides, initial encounter; B95.2 Enterococcus as the cause of diseases classified elsewhere; Z83.3 Family history of diabetes mellitus; Z82.49 Family history of ischemic heart disease and other diseases of the circulatory system; Z82.0 Family history of epilepsy and other diseases of the nervous system; Z87.891 Personal history of nicotine dependence; Y83.1 Surgical operation with implant of artificial internal device as the cause of abnormal reaction of the patient, or of later complication, without mention of misadventure at the time of the procedure

== ENCOUNTER → 2017-02-01 | Outpatient (CLI) | payer OTHER ==
[~2017-02-01] MED LIST changes: -ACET-1311 PO; -MPR50 PO; -MTR600X PO; -ONDA8TAB62 SL; -PRENTAB26 PO; +VANC1INJ94 IV
[2017-02-01 14:45] LABS: BASO % 0.5 %; BASO ABS # 0.04 K/uL (0-0.2); COMPLETE YES; HEMATOCRIT 39.8 % (37-47); IG% 0.2 %; LYMPH % 35.9 %; LYMPH ABS # 2.93 K/uL (1.2-3.4); MEAN CELL VOLUME 90.5 fL (80-100); MEAN CORPUSCULAR HEMOGLOBIN 29.5 pg (25-34); MEAN CORPUSCULAR HGB CONC 32.7 g/dl (32-36); MEAN PLATELET VOLUME 9.7 fL (7.4-10.4); MONO % 4.8 %; NEUT % 57.6 %; PLATELET COUNT 363 K/uL (130-400); WHITE BLOOD COUNT 8.16 K/uL (4.8-10.8)
[2017-02-01 15:14] LABS: BLOOD UREA NITROGEN 11 mg/dl (7-18); BUN/CREATININE RATIO 12.5 (10-20); CALCIUM 8.8 mg/dl (8.5-10.1); CARBON DIOXIDE 27 mmol/L (21-32); CHLORIDE 105 mmol/L (98-107); CREATININE 0.86 mg/dl (0.60-1.20); GLUCOSE 72 mg/dl (70-99); MAGNESIUM 2.5 mg/dl (1.8-2.4); PHOSPHORUS 3.7 mg/dl (2.5-4.9); SODIUM 138 mmol/L (136-145); URIC ACID 5.3 mg/dl (2.6-7.2)
== END | disposition home or self-care (01) ==
LOC: C.LAB1850 13:39
PROVIDERS: ATTEND Internal Medicine Nephrology
DX: N39.0 Urinary tract infection, site not specified (principal); N20.0 Calculus of kidney

== ENCOUNTER → 2017-02-01 | Outpatient (CLI) | payer OTHER | END | disposition home or self-care (01) | LOC: C.PAPS 16:21 | PROVIDERS: ATTEND Obstetrics & Gynecology | DX: Z12.4 Encounter for screening for malignant neoplasm of cervix (principal); R87.610 Atypical squamous cells of undetermined significance on cytologic smear of cervix (ASC-US) ==

== ENCOUNTER → 2017-05-24 | Outpatient (CLI) | payer OTHER ==
[2017-05-24 18:07] LABS: ALBUMIN 3.7 gm/dl (3.4-5.0); BLOOD UREA NITROGEN 9 mg/dl (7-18); CALCIUM 8.6 mg/dl (8.5-10.1); CARBON DIOXIDE 23 mmol/L (21-32); CREATININE 0.98 mg/dl (0.60-1.20); GLUCOSE 111 mg/dl (70-99); PHOSPHORUS 2.5 mg/dl (2.5-4.9); POTASSIUM 3.7 mmol/L (3.5-5.1); SODIUM 139 mmol/L (136-145)
== END | disposition home or self-care (01) ==
LOC: C.LABMFLN 14:07
PROVIDERS: ATTEND Internal Medicine Nephrology
DX: N20.0 Calculus of kidney (principal)